=== PATIENT | male | born 1965 | race Caucasian/White ===

== ENCOUNTER 2025-06-08 23:51 | Emergency (ER) | payer BC, SELFPAY ==
[2025-06-09 00:05] VITALS: BP 122/81
[2025-06-09 01:08] VITALS: BMI 22.4
[2025-06-09 01:32] LABS: Hematocrit 33.4 % (39.0-52.0); Hemoglobin 11.4 g/dL (13.0-18.0); Mean Corp Hgb Conc. 34.1 g/dL (33.0-37.0); Mean Corpuscular Volume 90.3 fL (80.0-94.0); Nucleated Red Blood Cells % 0 % (-); Platelet Count 191 10^3/uL (130-400); Red Cell Dist. Width 13.3 % (11.5-14.5)
[2025-06-09 01:46] LABS: ALT (SGPT) 151 U/L (0-50); AST (SGOT) 147 U/L (17-59); Albumin 3.8 g/dl (3.5-5.0); Alkaline Phosphatase 261 U/L (38-126); Blood Urea Nitrogen 25 mg/dl (9-20); Calcium 9.7 mg/dl (8.4-10.2); Carbon Dioxide 31 mmol/L (22-30); Chloride 103 mmol/L (98-107); Estimated Creatinine Clearance 48 ml/min; Glucose 123 mg/dl (70-99); Lipase 48 U/L (23-300); Potassium 4.6 mmol/L (3.5-5.1); Sodium 138 mmol/L (135-145); Total Protein 7.1 g/dl (6.3-8.2); eGFR 45.02
[2025-06-09 02:00] VITALS: BP 123/73
[2025-06-09 03:00] VITALS: BP 138/86
[2025-06-09 03:25] VITALS: BP 152/84
[2025-06-09 03:47] VITALS: BP 152/84
[2025-06-09] MEDS: NSS 1000 IV (04:34)
[2025-06-09 05:36] VITALS: BP 139/66
--- NOTE | 2025-06-09 06:06 | ED.GENMED ---
History of Present Illness
General
Chief Complaint: Abdominal Pain
Source: patient
Exam Limitations: none
Time Seen by Provider: 06/09/25 02:06
Nursing documentation reviewed up to this point in time: agreed with
History of Present Illness
History of Present Illness:
Note:
CHIEF COMPLAINT(S)
Abdominal discomfort and constipation.
HISTORY OF PRESENT ILLNESS
The patient is a 60-year-old male who presents with complaints of abdominal discomfort and bowel issues persisting for approximately four weeks. Initially, around October and November, he noticed his urine had a strawberry-like tint, which coincided with
taking the medication Quetiapine. After discontinuing the medication, per his doctors approval, the discoloration ceased.
More recently, he has experienced discomfort in the left abdomen, sometimes migrating to the pelvic region and lower back. The pain was described as uncomfortable but not acutely painful. Over the past two weeks, there have been variations in the
intensity of symptoms, with some days being better than others until today when it became intolerable. The patients bowel movements have become irregular; the last one occurred the previous night around midnight, described as pellet-like and
requiring significant effort.
The patient has a sensation of fullness or constipation confirmed by an abdominal X-ray indicating fecal retention. He acknowledges drinking prune juice but feels it was ineffective in alleviating the symptoms. His symptoms include a migrating pain
pattern, tender abdomen except for one area, and periodic discomfort exacerbated by movement or standing.
PHYSICAL EXAM
General: Alert, cooperative.
Skin: Warm, dry.
Head: Normocephalic, atraumatic.
Neck: Supple, trachea midline.
Eye Ears, Nose, Mouth, and Throat: Oral mucosa moist.
Cardiovascular: Normal peripheral perfusion, no edema.
Respiratory: Respirations are non-labored.
Gastrointestinal: Abdomen exhibited good bowel sounds but was tender upon palpation, particularly noticeable in regions of reported pain.
Back: Tenderness observed upon examination.
Musculoskeletal: Normal range of motion, normal strength.
Neurological: Alert and oriented to person, place, time, and situation. No focal neurological deficit observed.
Psychiatric: Cooperative, appropriate mood & affect.
PROBLEM LIST
Acute:
- Abdominal discomfort
- Constipation
PLAN
The plan includes administering an enema to alleviate fecal retention and reassess the patients symptoms following the procedure.
DIFFERENTIAL DIAGNOSIS
The Differential Diagnosis includes, in no particular order and is not limited to:
- Constipation
- Ileus
- Renal colic
- Abdominal mass
- Polynephritis
- Colonic obstruction
- Diverticulitis
- Urinary tract infection
- Inflammatory bowel disease
- Functional bowel disorder
Disposition:
SUMMARY OF ENCOUNTER
A 60-year-old male presented with abdominal pain and distension. He reported not having a bowel movement for several days. An enema consisting of milk and molasses was administered, resulting in several large bowel movements. Post-treatment, the
patients pain resolved, and abdominal distension decreased.
DISPOSITION
Discharge home in improved condition.
PLAN
The patient is to be discharged with a bottle of magnesium citrate to ensure continuity in bowel regularity.
MEDICATION RECONCILIATION
Magnesium citrate prescribed for continued bowel regulation.
MEDICAL DECISION MAKING
1. Number and Complexity of Problems Addressed: Chronic conditions affecting care include a history of constipation and acute abdominal discomfort.
2. Data:
Category 1: Abdominal X-ray indicating fecal retention was reviewed prior to administering the enema.
3. Risk: Consideration of Admission/Observation: Escalation of care, including admission/observation, was considered given the complexity and risk of the patients abdominal discomfort and fecal retention. However, ultimately it was determined the
patient was safe for outpatient management with close follow-up. Reasoning: The work-up was reassuring, symptoms were well controlled upon reevaluation, reexamination was reassuring, vitals were stable, and the patient was agreeable with discharge
and reliable for follow-up.
DIAGNOSIS
1. Constipation, unspecified (ICD-10: K59.00)
2. Abdominal pain, unspecified (ICD-10: R10.9)
Course
Orders/Labs/Results
Orders:
Orders
06/09/25 01:13
Complete Blood Count/With Diff Urgent
Comprehensive Metabolic Panel Urgent
Lipase Urgent
06/09/25 02:20
0.9% Sodium Chloride 1000 ml [Nss] 1,000 ml IV BOLUS
CR Abdomen - 1 View Urgent
Comment:
Reason For Exam: abd pain
06/09/25 03:22
Enema- Treatment ONCE
Type: Milk of Molasses
Abnormal Lab Results
06/09/25
01:13
RBC 3.70 L 10^6/uL
(4.70-6.10)
Hgb 11.4 L g/dL
(13.0-18.0)
Hct 33.4 L %
(39.0-52.0)
Absolute Lymphs (auto) 0.5 L 10^3/uL
(1.2-3.4)
Lymphocytes % 11.2 L %
(20.5-51.1)
Monocytes % 11.8 H %
(1.7-9.3)
Carbon Dioxide 31 H mmol/L
(22-30)
BUN 25 H mg/dl
(9-20)
Creatinine 1.7 H mg/dL
(0.7-1.3)
Glucose 123 H mg/dl
(70-99)
AST 147 H U/L
(17-59)
ALT 151 H U/L
(0-50)
Alkaline Phosphatase 261 H U/L
(38-126)
06/09/25 01:13
06/09/25 01:13
Vital Signs
Initial and Last Documented VS:
Initial Vital Signs
Temp Pulse Resp BP Pulse Ox
97.2 F 94 20 122/81 98
06/09/25 00:05 06/09/25 00:05 06/09/25 00:05 06/09/25 00:05 06/09/25 00:05
Last Documented Vital Signs
Temp Pulse Resp BP Pulse Ox
97.2 F 65 16 139/66 100
06/09/25 00:05 06/09/25 05:35 06/09/25 05:35 06/09/25 05:36 06/09/25 05:35
*Pulse Oximetry
SaO2: 100
Oxygen Mode of Delivery: Room air
ED Attending Note
-
Portions of this chart may have been created with voice recognition software.� Occasional wrong word or��sound alike� substitutions may have occurred due to the inherent limitations of voice recognition software.
Discharge Plan
Departure
Referrals:
Adán Yoder MD [Family Provider, Family Practice]
Interventions
Interventions:
*Risk Screen - Suicide Last Done: 06/09/25 00:05
*General Assessment Last Done: 06/09/25 01:06
*Neglect/Abuse Screening Last Done: 06/09/25 01:06
*ED- Fall Risk Assessment Last Done: 06/09/25 01:06
*ED COVID-19 Vaccine History Last Done: 06/09/25 01:06
*ED Influenza Vaccine History Last Done: 06/09/25 01:06
RG-Nbuoal-Mjyxobwlgi Assessment Last Done: 06/09/25 03:25
Discharge Date and Time
Print Language: LATVIAN
[2025-06-09] MEDS: CITROMA 300 ML PO (06:22)
== END 2025-06-09 06:30 | disposition home or self-care (01) ==
LOC: EMR 23:51
PROVIDERS: EMERGENCY PHYSICIAN Student in an Organized Health Care Education/Training Program; FAMILY PHYSICIAN Family Medicine
DX: K59.00 Constipation, unspecified (principal); R10.9 Unspecified abdominal pain
CPT/HCPCS: 96360; 99284; 74018; 80053; 83690; 85025

== ENCOUNTER 2025-06-16 07:10 | Inpatient (IN) | payer OTHER, SELFPAY ==
[2025-06-15] VITALS (8 sets, daily range): BP systolic 135–153; BP diastolic 76–95; BMI 23.0
--- NOTE | 2025-06-15 06:35 | ED.GENMED ---
History of Present Illness
General
Chief Complaint: Abdominal Pain
Time Seen by Provider: 06/15/25 06:07
Nursing documentation reviewed up to this point in time: agreed with
History of Present Illness
History of Present Illness:
60-year-old male presents the ER for evaluation of abdominal distention and pelvic pressure which have been worsening over the past month. Patient denies any weight loss. He has been feeling nauseated and has had decreased p.o. intake. He was
here in the ER 4 days ago and treated for constipation but has not had any significant relief of his feeling of abdominal discomfort. He denies any dysuria or urinary concerns. He reports swelling to his right lower extremity, which is new. He
also reports feeling short of breath with exertion-he took out the trash last night and had to stop because he was so winded. This is extremely unusual for the patient as he reports that he is an exercise enthusiast. He denies fevers. He has been
having increasing symptoms of depression and has been compliant with all of his medications. No recent change in his psychiatric medications. No prior history of abdominal discomfort or surgery.
Review of Systems
Review of Systems
Allergies reviewed?: Yes
Phy Exam
Physical Exam
Physical Exam:
Patient is awake, alert, appears in no acute distress, head is NCAT, PERRL, EOMI mucous membranes tacky, conjunctiva pink, sclera anicteric, temporal wasting, heart regular rate and rhythm without murmurs or ectopy, lungs are clear to auscultation
without wheezes rales or rhonchi, no JVD, abdomen is diffusely firm with enlargement in the upper abdomen, no guarding or rebound, positive right inguinal lymphadenopathy, right lower extremity with 2+ edema from thigh to foot, 2+ DP pulse present
bilateral feet, left lower extremity normal, GCS is 15
Course
Orders/Labs/Results
Orders:
Orders
06/15/25 06:26
CT Pe/abd/pel W Urgent
Reason For Exam: dyspnea
US Periph Venous LOWER Ext RT Urgent
Comment:
Reason For Exam: edema
06/15/25 06:27
Electrocardiogram (*1) Stat
Reason for Study: Abdominal Pain
Cardiac Monitoring- Treatment ONCE
EKG- Treatment ONCE
Vital Signs- Treatment ONCE
Frequency: Hourly
0.9% Sodium Chloride 1000 ml [Nss] 1,000 ml IV BOLUS
Morphine Sulfate 4 mg IV NOW STA
Pulse Ox/cont/shift [RESP] Stat
Quantity: 1
06/15/25 06:36
Ondansetron Injectable [Zofran] 4 mg IV NOW STA
06/15/25 06:47
Basic Metabolic Panel Urgent
Complete Blood Count/With Diff Urgent
Lipase Urgent
Troponin I Urgent
06/15/25 08:10
PTT Urgent
Prothrombin Time Urgent
Urinalysis Reflex To Culture Urgent
Date Specimen was Collected: 06/15/25
Time Specimen was Collected: 07:11
Urine Microscopic Reflex Cult Urgent
06/15/25 08:58
Add On- LAB Urgent
Tests Added?: liver chem panel
06/15/25 09:15
HYDROmorphone [Dilaudid] 0.5 mg IV NOW STA
06/15/25 09:23
Luupt-Ibhx-Pxrlygk Urgent
Potassium Urgent
Abnormal Lab Results
06/15/25 06/15/25 06/15/25
06:47 08:10 09:23
RBC 3.83 L 10^6/uL
(4.70-6.10)
Hgb 11.9 L g/dL
(13.0-18.0)
Hct 34.4 L %
(39.0-52.0)
MCH 31.1 H pg
(27.0-31.0)
MPV 10.6 H fL
(7.4-10.4)
Absolute Lymphs (auto) 0.7 L 10^3/uL
(1.2-3.4)
Absolute Monos (auto) 0.7 H 10^3/uL
(0.1-0.6)
Lymphocytes % 11.0 L %
(20.5-51.1)
Monocytes % 10.8 H %
(1.7-9.3)
Sodium 132 L mmol/L
(135-145)
Creatinine 1.5 H mg/dL
(0.7-1.3)
Direct Bilirubin 0.5 H mg/dl
(0.0-0.4)
AST 176 H U/L
(17-59)
ALT 184 H U/L
(0-50)
Alkaline Phosphatase 333 H U/L
(38-126)
Urine Albumin (Reflex) 1+ A
(Neg - Trace)
06/15/25 06:47
06/15/25 09:23
Vital Signs
Initial and Last Documented VS:
Initial Vital Signs
Temp Pulse Resp BP Pulse Ox
97.9 F 98 16 139/91 100
06/15/25 05:56 06/15/25 05:56 06/15/25 05:56 06/15/25 05:56 06/15/25 05:56
Last Documented Vital Signs
Temp Pulse Resp BP Pulse Ox
97.9 F 66 18 138/95 100
06/15/25 05:56 06/15/25 06:53 06/15/25 06:53 06/15/25 06:53 06/15/25 06:53
MDM/Problems Addressed
Differential Diagnosis Includes:
Differential diagnosis to consider but not limited to intra-abdominal malignancy, IVC compression, right lower extremity DVT, pulmonary embolism, along with other etiologies considered
Chronic conditions affecting care:
Anxiety
*Radiology
Radiology exam reviewed: preliminary read by ED provider (I independently viewed and interpreted CT of the chest abdomen pelvis showing significant hepatomegaly with concern for multiple areas of malignancy. Await radiology interpretation)
*Pulse Oximetry
SaO2: 100
Oxygen Mode of Delivery: Room air
Patient hypoxic: no
*EKG
Interpreted by ED Provider?: Yes (I independently viewed and interpreted twelve-lead EKG showing sinus rhythm with PACs, rate 62, normal axis, normal intervals, this is a nonspecific EKG without evidence for acute ischemia)
*Forest Examiner Interpretation
Rate: normal (I independently viewed and interpreted rhythm strip showing sinus rhythm with PACs)
*Critical Care Note
Total Time (30-74mins, 75-104mins- exclusive of procedures): Not Applicable
Data Reviewed
Review of Other/Old Records Reveals: Labs (Patient had elevated LFTs and creatinine 1.7 from ER visit 06/09/25) and Operative Reports (I reviewed colonoscopy report from 12/29/2013, Dr. Beal. Patient had a 10 mm polyp removed from his rectum
during this procedure)
Update Note
Update Note:
Will give Zofran and morphine for discomfort along with IV fluids. I discussed with patient need to obtain CT angio to rule out pulmonary embolism in addition to CT of the abdomen and pelvis. Will also obtain right lower extremity ultrasound.
Awaiting results.
1000: Patient did require additional pain reliever. Patient went to CT. Await radiology interpretation
1025: I reviewed CT results with Dr. Warren, radiology. No evidence for pulmonary embolism on CT of the chest, however there are tubular foci in the right upper lobe, left upper lobe and left lower lobe, possibly related to mucous plugging. She
also sees extensive metastatic disease throughout the liver along with a grossly abnormal right kidney that is not exhibiting any perfusion or excretion on the CT scan. Patient also has compression of the IVC with clot. She would suspect renal
cell carcinoma as primary. I reviewed this result with the patient along with benefit of admission for expedited workup. He agrees with plan at current. I reviewed patient presentation with hospitalist who accepts patient for admission.
ED Attending Note
-
Portions of this chart may have been created with voice recognition software.� Occasional wrong word or��sound alike� substitutions may have occurred due to the inherent limitations of voice recognition software.
Discharge Plan
Departure
Patient Disposition: Admit
Date of Disposition: 06/15/25
Time of Disposition: 10:35
Presentation/result/management discussed w/ accepting MD/DO: Hospitalist
Discharge Problem:
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
Prescriptions:
No Action
fluvoxamine 100 mg tablet
100 mg PO DAILY
fluvoxamine 100 mg tablet
150 mg PO HS
bupropion HCl 200 mg tablet sustained-release 12 hr
200 mg PO BID
alprazolam 3 mg tablet extended release 24 hr
3 mg PO DAILY
Referrals:
Adán Yoder MD [Family Provider, Family Practice]
Interventions
Interventions:
*Risk Screen - Suicide Last Done: 06/15/25 06:04
*General Assessment Last Done: 06/15/25 06:04
*Neglect/Abuse Screening Last Done: 06/15/25 06:04
*ED COVID-19 Vaccine History Last Done: 06/15/25 06:04
*ED Influenza Vaccine History Last Done: 06/15/25 06:04
DU-Znmlmi-Gtyonjmkdp Assessment Last Done: 06/15/25 06:14
Discharge Date and Time
Print Language: CZECH
[2025-06-15] MEDS: MORPHINE SULFATE 4 MG IV (06:40)
[2025-06-15] MEDS: ZOFRAN 4 MG IV ×2 (06:40→15:50)
[2025-06-15] MEDS: NSS 1000 IV ×2 (06:45→15:50)
[2025-06-15 07:20] LABS: Hematocrit 34.4 % (39.0-52.0); Hemoglobin 11.9 g/dL (13.0-18.0); Mean Corp Hgb Conc. 34.6 g/dL (33.0-37.0); Mean Corpuscular Volume 89.8 fL (80.0-94.0); Nucleated Red Blood Cells % 0 % (-); Platelet Count 226 10^3/uL (130-400); Red Cell Dist. Width 13.5 % (11.5-14.5)
[2025-06-15 07:27] LABS: Lipase 67 U/L (23-300)
[2025-06-15 07:32] LABS: Troponin I < 0.012 ng/ml
[2025-06-15 08:14] LABS: Blood Urea Nitrogen 18 mg/dl (9-20); Estimated Creatinine Clearance 56 ml/min; Glucose 89 mg/dl (70-99); eGFR 52.31
[2025-06-15 08:15] LABS: Calcium 9.8 mg/dl (8.4-10.2); Carbon Dioxide 26 mmol/L (22-30); Chloride 100 mmol/L (98-107); Sodium 132 mmol/L (135-145)
[2025-06-15 08:38] LABS: Urine Character Clear (Clear)
[2025-06-15 08:41] LABS: APTT 28.1 Sec (23.4-35.0); INR 1.05; PT 14.2 Sec (11.4-14.6)
[2025-06-15 09:19] LABS: Urine Red Blood Cell 0-2 /HPF (0-2)
[2025-06-15] MEDS: DILAUDID 0.5 MG IV ×3 (09:21→23:07)
[2025-06-15 09:46] LABS: ALT (SGPT) 184 U/L (0-50); AST (SGOT) 176 U/L (17-59); Albumin 3.6 g/dl (3.5-5.0); Alkaline Phosphatase 333 U/L (38-126); Potassium 5.0 mmol/L (3.5-5.1); Total Protein 6.8 g/dl (6.3-8.2)
[2025-06-15] MEDS: HEPARIN 25000 UNITS/250 ML IV (11:52)
--- NOTE | 2025-06-15 11:57 | HPS.HSE ---
Family Physician
-
Family Physician: Adán Yoder
Chief Complaint
-
abdominal dyscomfort
History of Present Illness
60yo M with PMHX of anxiety came with worsening abdominal distension and discomfort for past few months. He also lost 27lbs over past year, however he was trying todo that with dieting and excersise. In ED found elevated LFT and CT showed numerous
abnormal hepatic masses consistent with metastatic disease. There is clot in the IVC. There is a soft tissue mass medial to the right kidney which may be adenopathy however neoplastic process and/or invasion of the IVC cannot be excluded. The right
kidney is markedly abnormal and renal cell carcinoma is strongly suspected.
Medical History
Past Medical History
Past Medical History: Reports Other
Additional Past Medical History:
see above
Past Surgical History: Reports None
Social History
Tobacco: Non-smoker
Alcohol: None
Drug: None
Family History
Family History: Not pertinent
Allergies / Home Medications
Allergies reflects when Allergies were last updated in [facility].
Home Medications with original date entered in [facility]
Allergy/Medication List:
Allergies
Allergy/AdvReac Type Severity Reaction Status Date / Time
No Known Allergies Allergy Unverified 06/09/25 02:46
Home Medications
alprazolam 3 mg tablet,extended release 24 hr 3 mg PO DAILY 06/15/25
bupropion HCl 200 mg tablet,12 hr sustained-release 200 mg PO BID 06/15/25
fluvoxamine 100 mg tablet 100 mg PO DAILY 06/15/25
fluvoxamine 100 mg tablet 150 mg PO HS 06/15/25
Review of Systems
-
History Source: Patient
A 12 point ROS was completed and negative except as noted: Yes
Abdomen/GI: Reports See HPI
Physical Exam
Vital Signs
Vital Signs
Temp Pulse Resp BP Pulse Ox
97.9 F 64 12 142/86 100
06/15/25 05:56 06/15/25 09:15 06/15/25 08:09 06/15/25 09:00 06/15/25 09:15
Physical Exam
General: No Apparent Distress
HEENT: NormoCephalic
Respiratory: Clear; No Wheezes, Rales or Rhonchi
Cardiac: S1/S2 and Regular Rhythm; No Murmur
GI: Soft, Tender (minimally) and Distended
Genito-urinary: No costovertebral tender
Musculoskeletal: No Clubbing, No Cyanosis and Edema, Right Lower Extremity
Skin: Warm; No Rash or Jaundice
Neuro: Awake, Alert, Oriented, AO x 3 and No Motor Deficits
Psych: Calm
Laboratory Results
-
06/15/25 06:47
06/15/25 09:23
Laboratory Results
PT 14.2 Sec (11.4-14.6) 06/15/25 08:10
INR 1.05 06/15/25 08:10
APTT 28.1 Sec (23.4-35.0) 06/15/25 08:10
Total Bilirubin 0.8 mg/dl (0.2-1.3) 06/15/25 09:23
AST 176 U/L (17-59) H 06/15/25 09:23
ALT 184 U/L (0-50) H 06/15/25 09:23
Alkaline Phosphatase 333 U/L (38-126) H 06/15/25 09:23
Troponin I < 0.012 ng/ml 06/15/25 06:47
Lipase 67 U/L (23-300) 06/15/25 06:47
Data Reviewed
-
CT Scan: Report Reviewed by me
Ultrasound: Report Reviewed by me
Lab Data: Labs Reviewed by me
Impression/Plan
-
A/P:
#R kidney soft tissue mass
#Hepatic metastatic disease
#Elevated LFT 2/2 metastatic disease
#clot in IVC
Heparin
IRAD for biopsy - apparently can do iver lesion
Oncology consult
Heaprin drip, eventual DOAC upon d/c
follow LFT
check hepatitis panel
#Anxiety d/o
cont home meds
#RLE edema
no DVT
#Constipation
laxatives
DVT ppx hep drip
full code
I have spent at least 77min reviewing chart, test results, communication with consultants and providing direct patient care
--- NOTE | 2025-06-15 13:02 | W.PN.UPDATE ---
Update Note
Progress Note Update
as per conversation with onc - hold anticoag until MRI abd to eval for clot vs mass in IVC as mass can bleed
--- NOTE | 2025-06-15 13:23 | CON.ONC ---
Documented by User: OSBALDO Munguia 06/15/25 13:48
Consultation
-
Date Consultation Requested: 06/15/25
Date Consultation Performed: 06/15/25
Requesting Provider: Dr. Jason Sen
Performing Provider: Dr. Zaheer Kendall
Reason for Consultation: R renal abnormality, liver lesions, adenopathy, VTE
Impression
Impression
right kidney abnormality and soft tissue mass medial to the right kidney
Hepatic lesions
transaminitis
clot in IVC
anemia
Plan
Plan
heparin gtt
trend LDH, uric acid
check ferritin, b12, folate
IR consult for liver biopsy
symptom support with antiemetics and pain management
Patient History
History of Present Illness
60yo M who presented with abdominal discomfort. He notes a 27lb weight loss, abdominal distention, and worsening abdominal pain. He notes some weight loss was intentional over the past year. His initial evaluation with a CTA chest showed no evidence
of pulmonary emboli, however, did show tubular foci predominantly in the right upper lobe but scattered elsewhere with a pattern suggesting an endobronchial process, and adenopathy in the right hilum and subcarinal. His CT ab/pelvis showed, numerous
abnormal hepatic masses, soft tissue mass medial to the right kidney, abnormal right kidney, and IVC thrombus. HIs labs showed WBC 6.6, Hgb 11.9, platelet 226,000, Na 132, BUN 18, creatinine 1.5, Tbili 0.8, AST 176, ALT 184, alk phos 333. He has
been admitted and started on a heparin gtt for further work up and evaluation.
Clinically, he denies fever, chills, cough, chest pain, sob at rest, palpitations. He reports abdominal discomfort, distention, nausea, and constipation. He denies any overt bleeding.
Afebrile, no hypoxia or hypotension
Past-Medical/Surgical History
PMH hemorrhoids, rectal polyp, anxiety
PSH denies
Social denies tobacco, ETOH, or recreational drug use
Family non-contributory
Patient Medication
�Medication �Instructions �Recorded �Confirmed �Last Taken �Type
alprazolam 3 mg tablet,extended 3 mg PO DAILY 06/15/25 06/15/25 06/14/25 History
release 24 hr
bupropion HCl 200 mg tablet,12 hr 200 mg PO BID 06/15/25 06/15/25 06/14/25 History
sustained-release
fluvoxamine 100 mg tablet 100 mg PO DAILY 06/15/25 06/15/25 06/14/25 History
fluvoxamine 100 mg tablet 150 mg PO HS 06/15/25 06/15/25 06/14/25 History
Review of Systems
-
ROS is notable for HPI, otherwise negative
Physical Exam
-
General: No Apparent Distress and Other (temporal wasting)
HEENT: Moist Mucous Membranes; Negative Jaundice
Pulmonary: Other (unlabored)
GI: Soft
Extremities: Pulses Present and Edema (RLE edema)
Skin: Warm
Psych: Calm
Labs
Lab Results
WBC 6.6 10^3/uL (4.8-10.8) 06/15/25 06:47
RBC 3.83 10^6/uL (4.70-6.10) L 06/15/25 06:47
Hgb 11.9 g/dL (13.0-18.0) L 06/15/25 06:47
Hct 34.4 % (39.0-52.0) L 06/15/25 06:47
MCV 89.8 fL (80.0-94.0) 06/15/25 06:47
MCH 31.1 pg (27.0-31.0) H 06/15/25 06:47
MCHC 34.6 g/dL (33.0-37.0) 06/15/25 06:47
RDW 13.5 % (11.5-14.5) 06/15/25 06:47
Plt Count 226 10^3/uL (130-400) 06/15/25 06:47
MPV 10.6 fL (7.4-10.4) H 06/15/25 06:47
Abs Immat Gran (auto) 0.0 10^3/uL (0-0.05) 06/15/25 06:47
Absolute Neuts (auto) 4.9 10^3/uL (1.4-6.5) 06/15/25 06:47
Absolute Lymphs (auto) 0.7 10^3/uL (1.2-3.4) L 06/15/25 06:47
Absolute Monos (auto) 0.7 10^3/uL (0.1-0.6) H 06/15/25 06:47
Absolute Eos (auto) 0.2 10^3/uL (0-0.7) 06/15/25 06:47
Absolute Basos (auto) 0.0 10^3/uL (0-0.2) 06/15/25 06:47
Immature Gran % 0.3 % (0-0.5) 06/15/25 06:47
Neutrophils % 74.9 % (42.2-75.2) 06/15/25 06:47
Lymphocytes % 11.0 % (20.5-51.1) L 06/15/25 06:47
Monocytes % 10.8 % (1.7-9.3) H 06/15/25 06:47
Eosinophils % 2.4 % (0-6) 06/15/25 06:47
Basophils % 0.6 % (0-2) 06/15/25 06:47
Creatinine 1.5 mg/dL (0.7-1.3) H 06/15/25 06:47
Vital Signs
Vital Signs
Temp Pulse Resp BP Pulse Ox
97.9 F 64 12 142/86 100
06/15/25 05:56 06/15/25 09:15 06/15/25 08:09 06/15/25 09:00 06/15/25 09:15

Documented by User: Zaheer Kendall DO 06/15/25 13:54
Impression
Impression
Right kidney abnormality and soft tissue mass medial to the right kidney
Hepatic lesions
transaminitis
clot in IVC difficult to visualize by CAT scan due to inadequate contrast
anemia
Plan
Plan
Hold heparin gtt
MRI with contrast assessment of IVC to rule out direct invasion which would increase risk for bleeding
There may be thrombosis with extrinsic compression only
Trend LDH, uric acid
Check ferritin, b12, folate
IR consult reviewed interventional radiology left cervical lymphadenopathy lower risk biopsy then liver
Symptom support with antiemetics and pain management
--- NOTE | 2025-06-15 13:33 | EDRN ---
per Dr. Sen, Heparin gtt to be held currently until further notice
[2025-06-15 14:23] LABS: Uric Acid 5.5 mg/dl (3.5-8.5)
[2025-06-15 15:04] LABS: Ferritin 785.0 ng/ml (17.9-464.0)
[2025-06-15 15:13] LABS: LDH 3265 U/L (120-246)
[2025-06-15 15:35] LABS: Folate 19.3 ng/ml (2.76-20); Vitamin B12 913 pg/ml (239-931)
--- NOTE | 2025-06-15 15:47 | CM ---
Patient seen at bedside in ED. Patient OBS and signed form given to apartment community assistant manager for file and patient given copy. Patient states that he lives alone in a one story single wide. Patient has one step to enter. Patient has no DME at home and is
independent of ADL's and IADL's. Patient PCP is Dr. Yoder and he uses [facility] in [place]. CM will continue to follow for discharge planning needs.
Plan; home with VN vs home with no needs; watch for medical treatment plan
--- NOTE | 2025-06-15 16:42 | EDRN ---
this RN called the receiving unit and notified them that paper report was going to be tubed up
[2025-06-15] MEDS: SENOKOT-S 1 TABLET PO (19:51)
[2025-06-15] MEDS: XANAX 1.5 MG PO (20:59)
[2025-06-15] MEDS: WELLBUTRIN SR (12 hour sustained release) 200 MG PO (21:00)
[2025-06-15] MEDS: LUVOX 150 MG PO (21:02)
[2025-06-15 21:07] LABS: Hepatitis B Surface Antigen Negative (Negative)
[2025-06-15] MEDS: ROXICODONE 5 MG PO (21:25)
[2025-06-15 21:26] LABS: Hepatitis C Antibody Negative (Negative)
[2025-06-16] MEDS: NSS 1000 IV (04:07)
[2025-06-16] MEDS: DILAUDID 0.5 MG IV ×4 (05:54→21:42)
[2025-06-16 07:33] LABS: Hematocrit 34.0 % (39.0-52.0); Hemoglobin 11.6 g/dL (13.0-18.0); Mean Corp Hgb Conc. 34.1 g/dL (33.0-37.0); Mean Corpuscular Volume 92.6 fL (80.0-94.0); Platelet Count 212 10^3/uL (130-400); Red Cell Dist. Width 13.5 % (11.5-14.5)
[2025-06-16 07:40] VITALS: BP 145/74
[2025-06-16] MEDS: XANAX 1.5 MG PO ×2 (07:43→19:25)
[2025-06-16] MEDS: WELLBUTRIN SR (12 hour sustained release) 200 MG PO ×2 (07:44→19:25)
[2025-06-16] MEDS: LUVOX 100 MG PO (07:44)
[2025-06-16] MEDS: SENOKOT-S 1 TABLET PO ×2 (07:44→19:26)
[2025-06-16 07:55] LABS: ALT (SGPT) 170 U/L (0-50); AST (SGOT) 149 U/L (17-59); Albumin 3.6 g/dl (3.5-5.0); Alkaline Phosphatase 325 U/L (38-126); Blood Urea Nitrogen 22 mg/dl (9-20); Calcium 9.4 mg/dl (8.4-10.2); Carbon Dioxide 32 mmol/L (22-30); Chloride 98 mmol/L (98-107); Estimated Creatinine Clearance 52 ml/min; Glucose 89 mg/dl (70-99); Potassium 4.9 mmol/L (3.5-5.1); Sodium 134 mmol/L (135-145); Total Protein 6.6 g/dl (6.3-8.2); eGFR 48.41
[2025-06-16] MEDS: ROXICODONE 5 MG PO (07:56)
--- NOTE | 2025-06-16 11:22 | W.PN.HOSP.TC ---
Today's Communication/Plan
-
biopsy
switch to dilaudid since Oxycodone did not help with night abd pain
stop IVF
Assessment / Plan
Assessment / Plan
60yo M with PMHX of anxiety came with worsening abdominal distension and discomfort for past few months. He also lost 27lbs over past year, however he was trying todo that with dieting and excersise. In ED found elevated LFT and CT showed numerous
abnormal hepatic masses consistent with metastatic disease with tumor invasion to IVC and R kidney almost totally replced by tumor tissue, concerning for RCC
A/P:
#R kidney soft tissue mass
#Hepatic metastatic disease
#Elevated LFT 2/2 metastatic disease
[facility] for biopsy - apparently can do iver lesion
Oncology consult: recommended biopsy of subcranial lymph node
Heaprin drip, eventual DOAC upon d/c
follow LFT
pain mgmt
high risk for bleeding from the tumor invasion to IVC, no AC as per hematology
MRI abd:
LARGE 12 cm RIGHT RENAL CELL CARCINOMA completely replacing the right kidney with surrounding extracapsular extension of malignancy.
2. Extensive metastatic disease extending medially from the right kidney through the retroperitoneum with occlusion of the right renal vein (probably containing tumor thrombus and encased by emily metastatic disease).
3. SEVERE METASTATIC RETROPERITONEAL LYMPHADENOPATHY.
4. Near complete occlusion of the IVC which is encased by extensive metastatic retroperitoneal lymphadenopathy.
5. TUMOR THROMBUS (and probably bland thrombus) in the IVC and right common iliac vein
6. VERY EXTENSIVE HEPATIC METASTATIC DISEASE replacing greater than 75% of the liver parenchyma.
7. Right adrenal metastasis.
8. Large retrocrural and mediastinal emily metastases.
9. Small bilateral pleural effusions.
#Anxiety d/o
cont home meds
#RLE edema
no DVT
#Anemia
mild
follow CBC
#Constipation
laxatives
#CKD stage 3a
2/2 metastatic renal disease
stable
DVT ppx SCDs
full code
I have spent at least 57min reviewing chart, test results, communication with consultants and providing direct patient care
Anticipated Discharge: Within 24 hours
Subjective/Interval History
-
Date of Service: June 16, 2025
Objective Data
-
Labs:
Laboratory Results
06/16/25
06:52
WBC 7.1
Hgb 11.6 L
Hct 34.0 L
Plt Count 212
Sodium 134 L
Potassium 4.9
Chloride 98
Carbon Dioxide 32 H
BUN 22 H
Creatinine 1.6 H
Glucose 89
Calcium 9.4
Total Bilirubin 0.5
AST 149 H
ALT 170 H
Alkaline Phosphatase 325 H
Vital Signs:
Vital Signs
Temp Pulse Resp BP Pulse Ox
97.7 F 58 18 145/74 99
06/16/25 07:40 06/16/25 07:40 06/16/25 07:40 06/16/25 07:40 06/16/25 07:40
I&O
06/15/25 06/16/25 06/17/25
06:59 06:59 06:59
Intake Total 1440 / 1440
Balance 1440 / 1440
Review of Systems
-
History Source: Patient
All other systems: Reviewed and negative
Abdomen/GI: Reports Abdominal Pain
Physical Exam
-
General: Comfortable
HEENT: Normocephalic
Cardiac: Regular Rhythm
GI: Soft, Tender and Distended
Neuro: Awake, Alert, Oriented and AO x 3
Psych: Calm
--- NOTE | 2025-06-16 12:33 | W.PN.ONC2 ---
Today's Communication / Plan
-
IR biopsy, follow for path
heparin gtt
Impression
Impression
12cm RCC replacing R kidney with surrounding extracapsular extension of malignancy, Extensive metastatic disease extending medially from the right kidney through the retroperitoneum, RP adenopathy
Hepatic lesions, right adrenal lesion consistent with metastasis
transaminitis
tumor thrombus and probably bland thrombus in the IVC and right common iliac vein
anemia, elevated ferritin
elevated LDH, non-specific -no evidence of TLS with normal urate
renal insufficency, chronicity unknown
Plan
Plan
IR consult for left cervical lymphadenopathy biopsy for diagnosis
heparin gtt
Symptom support with antiemetics and pain management
Subjective/Objective
Subjective
no new complaints
afebrile, no hypoxia or hypotension
using Colace, senna for constipation
using ondansetron for nausea
using hydrmorphone for pain
Vital Signs:
Vital Signs
Temp Pulse Resp BP Pulse Ox
97.7 F 58 18 145/74 99
06/16/25 07:40 06/16/25 07:40 06/16/25 07:40 06/16/25 07:40 06/16/25 07:40
Lab Results:
Laboratory Data
WBC 7.1 10^3/uL (4.8-10.8) 06/16/25 06:52
Hgb 11.6 g/dL (13.0-18.0) L 06/16/25 06:52
Plt Count 212 10^3/uL (130-400) 06/16/25 06:52
PT 14.2 Sec (11.4-14.6) 06/15/25 08:10
INR 1.05 06/15/25 08:10
APTT Cancelled 06/15/25 18:00
eGFR 48.41 06/16/25 06:52
Physical Exam
HEENT: Moist Mucous Membranes; No Jaundice
Pulmonary: Other (unlabored)
GI: Soft
Extremities: Pulses Present and Edema
Neuro: Non Focal
Orders
Orders
Orders From Last 24 Hours
06/15/25 13:44
Add On- LAB Routine
[2025-06-16 13:57] LABS: APTT 28.2 Sec (23.4-35.0)
--- NOTE | 2025-06-16 14:12 | PTCARENOTE ---
Pt ordered heparin gtt to start. [facility] called this RN to have patient come down for biopsy. Checked with Dr. Sen and confirmed to initiate heparin gtt when patient comes back from [facility]. Will continue with current plan.
[2025-06-16 14:14] VITALS: BP 135/76; BP_SYST 64
[2025-06-16 15:32] VITALS: BP 134/74; BP_SYST 60
[2025-06-16 15:39] VITALS: BP 134/74
[2025-06-16] MEDS: HEPARIN 25000 UNITS/250 ML IV (16:43)
[2025-06-16 17:39] VITALS: BP 131/73
[2025-06-16] MEDS: LUVOX 150 MG PO (21:40)
[2025-06-16 22:06] LABS: APTT 54.9 Sec (23.4-35.0)
[2025-06-16 23:22] VITALS: BP 116/73
[2025-06-17] MEDS: DILAUDID 0.5 MG IV ×3 (04:26→14:03)
[2025-06-17 04:47] LABS: APTT 81.1 Sec (23.4-35.0)
[2025-06-17 07:46] VITALS: BP 136/82
[2025-06-17] MEDS: LUVOX 100 MG PO (08:15)
[2025-06-17] MEDS: WELLBUTRIN SR (12 hour sustained release) 200 MG PO (08:15)
[2025-06-17] MEDS: SENOKOT-S 1 TABLET PO (08:15)
[2025-06-17] MEDS: XANAX 1.5 MG PO (08:15)
[2025-06-17] MEDS: HEPARIN 25000 UNITS/250 ML IV (08:20)
[2025-06-17 10:57] LABS: APTT 102.0 Sec (23.4-35.0)
--- NOTE | 2025-06-17 11:42 | W.PN.HOSP.TC ---
Addendum entered and electronically signed by Jason Sen MD 06/17/25 15:14:
Dont use billing under this PN, use discharge summary billing instead
Original Note:
Today's Communication/Plan
-
pending final oncology recommendations
Laxatives
Assessment / Plan
Assessment / Plan
60yo M with PMHX of anxiety came with worsening abdominal distension and discomfort for past few months. He also lost 27lbs over past year, however he was trying todo that with dieting and excersise. In ED found elevated LFT and CT showed numerous
abnormal hepatic masses consistent with metastatic disease with tumor invasion to IVC and R kidney almost totally replced by tumor tissue, concerning for RCC
A/P:
#R kidney soft tissue mass
#Hepatic metastatic disease
#Elevated LFT 2/2 metastatic disease
[facility] for biopsy - apparently can do iver lesion
Oncology consult: recommended biopsy of subcranial lymph node
Heaprin drip, eventual DOAC upon d/c
follow LFT
pain mgmt
high risk for bleeding from the tumor invasion to IVC, no AC as per hematology
MRI abd:
LARGE 12 cm RIGHT RENAL CELL CARCINOMA completely replacing the right kidney with surrounding extracapsular extension of malignancy.
2. Extensive metastatic disease extending medially from the right kidney through the retroperitoneum with occlusion of the right renal vein (probably containing tumor thrombus and encased by emily metastatic disease).
3. SEVERE METASTATIC RETROPERITONEAL LYMPHADENOPATHY.
4. Near complete occlusion of the IVC which is encased by extensive metastatic retroperitoneal lymphadenopathy.
5. TUMOR THROMBUS (and probably bland thrombus) in the IVC and right common iliac vein
6. VERY EXTENSIVE HEPATIC METASTATIC DISEASE replacing greater than 75% of the liver parenchyma.
7. Right adrenal metastasis.
8. Large retrocrural and mediastinal emily metastases.
9. Small bilateral pleural effusions.
#Anxiety d/o
cont home meds
#RLE edema
no DVT
#Anemia
mild
follow CBC
#Constipation
laxatives
#CKD stage 3a
2/2 metastatic renal disease
stable
DVT ppx SCDs
full code
I have spent at least 57min reviewing chart, test results, communication with consultants and providing direct patient care
Anticipated Discharge: 24 - 48 hours
Subjective/Interval History
-
Date of Service: June 17, 2025
Objective Data
-
Labs:
Laboratory Results
06/17/25 06/17/25
04:22 10:37
APTT 81.1 H 102.0 H
Vital Signs:
Vital Signs
Temp Pulse Resp BP Pulse Ox
98.2 F 82 16 136/82 99
06/17/25 07:46 06/17/25 07:46 06/17/25 07:46 06/17/25 07:46 06/17/25 07:46
I&O
06/16/25 06/17/25 06/18/25
06:59 06:59 06:59
Intake Total 1440 / 1440 770 / 770
Balance 1440 / 1440 770 / 770
Review of Systems
-
History Source: Patient
All other systems: Reviewed and negative
Physical Exam
-
General: No Apparent Distress
HEENT: Normocephalic
Neuro: Awake, Alert, Oriented and AO x 3
Psych: Calm
--- NOTE | 2025-06-17 12:20 | W.DCSUMMARY ---
Discharge Summary
Discharge Data
Date of Admission: 06/16/25
Date of Discharge: 06/17/25
-
Pending Results: Yes
Additional Pending Results:
Pathology
Hospital Course
60yo M with PMHX of anxiety came with worsening abdominal distension and discomfort for past few months. He also lost 27lbs over past year, however he was trying todo that with dieting and excersise. In ED found elevated LFT and CT showed numerous
abnormal hepatic masses consistent with metastatic disease with tumor invasion to IVC and R kidney almost totally replced by tumor tissue, concerning for RCC
MRI abd:
LARGE 12 cm RIGHT RENAL CELL CARCINOMA completely replacing the right kidney with surrounding extracapsular extension of malignancy.
2. Extensive metastatic disease extending medially from the right kidney through the retroperitoneum with occlusion of the right renal vein (probably containing tumor thrombus and encased by emily metastatic disease).
3. SEVERE METASTATIC RETROPERITONEAL LYMPHADENOPATHY.
4. Near complete occlusion of the IVC which is encased by extensive metastatic retroperitoneal lymphadenopathy.
5. TUMOR THROMBUS (and probably bland thrombus) in the IVC and right common iliac vein
6. VERY EXTENSIVE HEPATIC METASTATIC DISEASE replacing greater than 75% of the liver parenchyma.
7. Right adrenal metastasis.
8. Large retrocrural and mediastinal emily metastases.
9. Small bilateral pleural effusions.
Started on heparin drip and eventually switched to Eliquis. After numerous calls to the pharmacy by and CM - confirmed that pharmacy will honor coupon for the first month supply, since they could not obtain Rx info from new insurance
Provided phone number to call Oncology office [facility] upon d/c for follow up care
[facility] for outpatient resources
Discussed same over the phone with brother - Mihai
Medically stable to be d/c as agreed with oncologist commissioning engineer, will stay with his brother
I have spent at least 57min reviewing chart, test results, communication with consultants and providing direct patient care
Patient was managed for:
#R kidney soft tissue mass
#IVC clot
#Hepatic metastatic disease
#Elevated LFT 2/2 metastatic disease
#Anxiety d/o
#RLE edema
#Anemia
#Constipation
#CKD stage 3a
Discharge Plan
-
Patient Disposition: Home (Routine Discharge)
Discharge Diagnosis/Procedures: metastatic CA
Diet: Regular
Activity: As tolerated
Driving Restrictions: No driving
Referrals:
Zaheer Kendall, DO [Active, Hematology / Oncology] - in one to two days
Referral Note: call [phone] for scheduling
Adán Yoder MD [Family Provider, Family Practice]
Prescriptions:
New
Eliquis 5 mg tablet
See Rx Instructions .ROUTE .COMPLEX Qty: 74 0RF
Rx Instructions:
Take 10mg BID for 7 days, then 5mg BID until told to stop by doctor
ondansetron 4 mg tablet,disintegrating
4 mg PO Q8H PRN (Reason: nausea and vomiting) Qty: 30 0RF
oxycodone 10 mg tablet
10 mg PO Q8H PRN (Reason: Pain) Qty: 9 0RF
Continued
fluvoxamine 100 mg tablet
100 mg PO DAILY
fluvoxamine 100 mg tablet
150 mg PO HS
bupropion HCl 200 mg tablet sustained-release 12 hr
200 mg PO BID
alprazolam 3 mg tablet extended release 24 hr
3 mg PO DAILY
Discharge Orders:
Discharge Patient (As Directed); Ordered 06/17/25
Ordered By: Jason Sen
Discharge Date and Time
Print Language: HEBREW
--- NOTE | 2025-06-17 13:47 | CM ---
Addendum entered by Chula Toure 06/17/25 14:49:
CM spoke with [facility]- confirmed they are able to accept Eliquis coupon. Pharmacy also unable to get through to patients prescription coverage as offices closed over weekend.
Original Note:
CM reviewed chart, patient seen bedside, on phone with friend.
Patient for d/c today, friend to provide transportation home.
Patient will require Eliquis upon d/c- will provide coupons.
Call to pharmacy- unable to check cost as they have patients old insurance coverage on file- provided pharmacy with patients new insurance information- pharmacy will call member services to obtain prescription plan/coverage.
CM also tried to call [employer] to obtain prescription coverage- informed office closed over weekend, update to Hospitalist.
Plan; home with family support, will confirm pharmacy is able to accept Eliquis coupon
[2025-06-17 15:41] VITALS: BP 117/72
[2025-06-17] MEDS: ELIQUIS 10 MG PO (16:57)
== END 2025-06-17 18:21 | disposition home or self-care (01) | DRG 686 ==
LOC: 4 WEST ACU 07:10
PROVIDERS: ADMITTING PHYSICIAN Internal Medicine; CONSULT PHYSICIAN Internal Medicine Hematology & Oncology; EMERGENCY PHYSICIAN Emergency Medicine; FAMILY PHYSICIAN Family Medicine
DX: C64.1 Malignant neoplasm of right kidney, except renal pelvis (principal); I82.220 Acute embolism and thrombosis of inferior vena cava; C77.1 Secondary and unspecified malignant neoplasm of intrathoracic lymph nodes; C78.7 Secondary malignant neoplasm of liver and intrahepatic bile duct; C79.71 Secondary malignant neoplasm of right adrenal gland; F41.9 Anxiety disorder, unspecified; D64.9 Anemia, unspecified; K59.00 Constipation, unspecified; N18.31 Chronic kidney disease, stage 3a; Z79.899 Other long term (current) drug therapy
CPT/HCPCS: 38505; 71275; 74177; 74183; 76942; 80048; 80053; 80076; 81003; 81015; 82607; 82728; 82746; 83615; 83690; 84132; 84484; 84550; 85025; 85027; 85610; 85730; 86704; 86706; 86803; 87340; 88305; 88333; 88341; 88342; 93005; 93971; 96361; 96374; 96375; 96376; 99285; A9575; Q9967

== ENCOUNTER 2025-06-23 12:04 | Emergency (ER) | payer BC, SELFPAY ==
[2025-06-23] VITALS (8 sets, daily range): BP systolic 120–183; BP diastolic 63–97; BMI 22.4
--- NOTE | 2025-06-23 13:17 | ED.GENMED ---
Addendum entered and electronically signed by Samuel Blanco PA-C 06/23/25 20:17:
Initial prescription for Dilaudid was 2 mg however the pharmacy does not have those. I prescribed a new prescription of 4 mg tablets and the instructions were to take half a tablet every 6 hours as needed for pain
Original Note:
History of Present Illness
<Samuel Blanco PA-C - Last Filed: 06/23/25 18:59>
General
Chief Complaint: Cancer Problem
Source: patient
Exam Limitations: none
Time Seen by Provider: 06/23/25 12:55
History of Present Illness
History of Present Illness:
60-year-old male with recent diagnosis of renal cancer with metastasis to the liver and multiple areas of thrombosis on Eliquis presents from home after recently being discharged from here with complaints of increased pain to the abdomen and pelvis.
He was prescribed oxycodone to go home with but then was switched to tramadol. None of these are working or for his pain. He does not see the for the initial appointment until 5 days from now. He denies chest pain. He does note constipation.
He has been using milk of magnesia as well as MiraLAX.
Phy Exam
<Samuel Blanco PA-C - Last Filed: 06/23/25 18:59>
Physical Exam
Physical Exam:
General: Cachectic appearing male no acute respiratory distress
HEENT normal cephalic
Heart: Regular rate and rhythm lungs: Clear no wheeze
Abdomen is distended firm and tender diffusely
Extremities: No cyanosis mild edema to the right lower extremity
Skin is warm without rash
Course
<Samuel Blanco PA-C - Last Filed: 06/23/25 18:59>
Orders/Labs/Results
Orders:
Orders
06/23/25 13:16
CT Abd/pelvis W Iv Cont Urgent
Comment:
Reason For Exam: increased pain, known CA
0.9% Sodium Chloride 500 ml [Nss] 500 ml IV BOLUS
HYDROmorphone [Dilaudid] 0.5 mg IV NOW STA
06/23/25 13:42
Complete Blood Count/With Diff Urgent
Comprehensive Metabolic Panel Urgent
Abnormal Lab Results
06/23/25
13:42
RBC 4.10 L 10^6/uL
(4.70-6.10)
Hgb 12.8 L g/dL
(13.0-18.0)
Hct 38.4 L %
(39.0-52.0)
MCH 31.2 H pg
(27.0-31.0)
Absolute Lymphs (auto) 0.7 L 10^3/uL
(1.2-3.4)
Absolute Monos (auto) 0.9 H 10^3/uL
(0.1-0.6)
Neutrophils % 77.2 H %
(42.2-75.2)
Lymphocytes % 8.9 L %
(20.5-51.1)
Monocytes % 12.8 H %
(1.7-9.3)
Sodium 129 L mmol/L
(135-145)
BUN 24 H mg/dl
(9-20)
Creatinine 1.5 H mg/dL
(0.7-1.3)
Glucose 106 H mg/dl
(70-99)
AST 233 H U/L
(17-59)
ALT 203 H U/L
(0-50)
Alkaline Phosphatase 531 H U/L
(38-126)
06/23/25 13:42
06/23/25 13:42
Vital Signs
Initial and Last Documented VS:
Initial Vital Signs
Pulse Resp Pulse Ox
117 18 100
06/23/25 12:16 06/23/25 12:16 06/23/25 12:16
Last Documented Vital Signs
Temp Pulse Resp BP Pulse Ox
98.6 F 86 14 144/92 98
06/23/25 15:00 06/23/25 18:15 06/23/25 18:15 06/23/25 18:00 06/23/25 18:15
<Harry Jackson MD - Last Filed: 06/23/25 13:38>
Orders/Labs/Results
Orders:
Orders
06/23/25 13:16
CT Abd/pelvis W Iv Cont Urgent
Comment:
Reason For Exam: increased pain, known CA
0.9% Sodium Chloride 500 ml [Nss] 500 ml IV BOLUS
HYDROmorphone [Dilaudid] 0.5 mg IV NOW STA
06/23/25 13:42
Complete Blood Count/With Diff Urgent
Comprehensive Metabolic Panel Urgent
Abnormal Lab Results
06/23/25
13:42
RBC 4.10 L 10^6/uL
(4.70-6.10)
Hgb 12.8 L g/dL
(13.0-18.0)
Hct 38.4 L %
(39.0-52.0)
MCH 31.2 H pg
(27.0-31.0)
Absolute Lymphs (auto) 0.7 L 10^3/uL
(1.2-3.4)
Absolute Monos (auto) 0.9 H 10^3/uL
(0.1-0.6)
Neutrophils % 77.2 H %
(42.2-75.2)
Lymphocytes % 8.9 L %
(20.5-51.1)
Monocytes % 12.8 H %
(1.7-9.3)
Sodium 129 L mmol/L
(135-145)
BUN 24 H mg/dl
(9-20)
Creatinine 1.5 H mg/dL
(0.7-1.3)
Glucose 106 H mg/dl
(70-99)
AST 233 H U/L
(17-59)
ALT 203 H U/L
(0-50)
Alkaline Phosphatase 531 H U/L
(38-126)
06/23/25 13:42
06/23/25 13:42
Vital Signs
Initial and Last Documented VS:
Initial Vital Signs
Pulse Resp Pulse Ox
117 18 100
06/23/25 12:16 06/23/25 12:16 06/23/25 12:16
Last Documented Vital Signs
Temp Pulse Resp BP Pulse Ox
98.6 F 86 14 144/92 98
06/23/25 15:00 06/23/25 18:15 06/23/25 18:15 06/23/25 18:00 06/23/25 18:15
<Samuel Blanco PA-C - Last Filed: 06/23/25 18:59>
MDM/Problems Addressed
Differential Diagnosis Includes:
Patient with known renal cell cancer with metastasis to the liver and multiple areas of thrombus on. Increased pain to the abdomen. Consider constipation versus worsening underlying condition versus perforation. Will check basic labs and repeat
CT with fluids and pain medicine ordered
<Samuel Blanco PA-C - Last Filed: 06/23/25 18:59>
*Pulse Oximetry
SaO2: 100
Patient hypoxic: no
*Critical Care Note
Total Time (30-74mins, 75-104mins- exclusive of procedures): Not Applicable
<Samuel Blanco PA-C - Last Filed: 06/23/25 18:59>
Update Note
Update Note:
CT shows known metastatic illness but no acute finding of perforation. He does feel more comfortable after IV Dilaudid. He will get another dose. Long discussion was had with patient and family ember in the room as far as options. Offered
admission for pain control or discharge. Will discharge him with a course of Dilaudid by mouth until he sees his pustulous has follow-up
ED Attending Note
<Samuel Blanco PA-C - Last Filed: 06/23/25 18:59>
-
Portions of this chart may have been created with voice recognition software.� Occasional wrong word or��sound alike� substitutions may have occurred due to the inherent limitations of voice recognition software.
<Harry Jackson MD - Last Filed: 06/23/25 13:38>
ED Attending Note
Patient seen and examined by attending physician: Yes
I performed the substantive portion of visit, reviewed & personally made and approve the management plan that is documented in note by myself or NAKIA.: Yes
ED Attending Note:
60-year-old male complaining of increased abdominal girth and abdominal pain. Recent diagnosis of metastatic renal cell CA. A few episodes of vomiting. No fever. Outpatient pain management is not working.
On exam his patient is nontoxic. Slightly thin. No respiratory distress. Lungs are clear and equal. Heart regular rate and rhythm. Abdomen distended and hard. Bowel sounds present. No rebound or guarding.
Extremities with moderate pitting edema bilaterally right greater than left.
Previous records reviewed. Previous scans reviewed.
Medical decision making: Possible secondary issue related to his metastatic CA. CT scan pending. Labs pending.
Discharge Plan
Departure
Patient Disposition: Home (Routine Discharge)
Date of Disposition: 06/23/25
Time of Disposition: 18:55
Patient with high blood pressure during this ER visit?: No
Discharge Problem:
Metastatic cancer
Prescriptions:
New
hydromorphone [Dilaudid] 2 mg tablet
2 mg PO Q6H PRN (Reason: Pain) Qty: 20 0RF
Rx Instructions:
Ongoing therapy
No Action
fluvoxamine 100 mg tablet
100 mg PO DAILY
fluvoxamine 100 mg tablet
150 mg PO HS
bupropion HCl 200 mg tablet sustained-release 12 hr
200 mg PO BID
alprazolam 3 mg tablet extended release 24 hr
3 mg PO DAILY
Eliquis 5 mg tablet
See Rx Instructions .ROUTE .COMPLEX Qty: 74 0RF
Rx Instructions:
Take 10mg BID for 7 days, then 5mg BID until told to stop by doctor
ondansetron 4 mg tablet,disintegrating
4 mg PO Q8H PRN (Reason: nausea and vomiting) Qty: 30 0RF
oxycodone 10 mg tablet
10 mg PO Q8H PRN (Reason: Pain) Qty: 9 0RF
tramadol 50 mg Tablet
50 mg PO Q6H PRN (Reason: generalized pain)
Referrals:
Zaheer Kendall, DO [Family Provider, Hematology / Oncology]
Activity Restrictions/Additional Instructions:
Continue to follow-up with oncologist as planned. Also consider following up with palliative care for further pain management. Call to set an appointment
Interventions
Interventions:
*Risk Screen - Suicide Last Done: 06/23/25 13:47
*General Assessment Last Done: 06/23/25 13:47
*Neglect/Abuse Screening Last Done: 06/23/25 13:47
*ED- Fall Risk Assessment Last Done: 06/23/25 13:47
*ED COVID-19 Vaccine History Last Done: 06/23/25 13:47
*ED Influenza Vaccine History Last Done: 06/23/25 13:47
Discharge Date and Time
Print Language: FAROESE
[2025-06-23] MEDS: DILAUDID 0.5 MG IV ×2 (13:39→19:02)
[2025-06-23] MEDS: NSS 500 IV (13:39)
[2025-06-23 13:55] LABS: Hematocrit 38.4 % (39.0-52.0); Hemoglobin 12.8 g/dL (13.0-18.0); Mean Corp Hgb Conc. 33.3 g/dL (33.0-37.0); Mean Corpuscular Volume 93.7 fL (80.0-94.0); Nucleated Red Blood Cells % 0 % (-); Platelet Count 234 10^3/uL (130-400); Red Cell Dist. Width 14.4 % (11.5-14.5)
[2025-06-23 14:07] LABS: ALT (SGPT) 203 U/L (0-50); AST (SGOT) 233 U/L (17-59); Albumin 4.0 g/dl (3.5-5.0); Alkaline Phosphatase 531 U/L (38-126); Blood Urea Nitrogen 24 mg/dl (9-20); Calcium 10.0 mg/dl (8.4-10.2); Carbon Dioxide 27 mmol/L (22-30); Chloride 98 mmol/L (98-107); Estimated Creatinine Clearance 54 ml/min; Glucose 106 mg/dl (70-99); Potassium 4.4 mmol/L (3.5-5.1); Sodium 129 mmol/L (135-145); Total Protein 7.4 g/dl (6.3-8.2); eGFR 52.31
== END 2025-06-23 19:28 | disposition home or self-care (01) ==
LOC: EMR 12:04
PROVIDERS: Physician Assistant; EMERGENCY PHYSICIAN Emergency Medicine; FAMILY PHYSICIAN Internal Medicine Hematology & Oncology
DX: R10.9 Unspecified abdominal pain (principal); R10.20 Pelvic and perineal pain unspecified side
CPT/HCPCS: 99284; 96374; 96376; 96361; 74177; 80053; 85025; Q9967

== ENCOUNTER 2025-07-01 10:47 | Emergency (ER) | payer BC, SELFPAY ==
[2025-07-01] VITALS (9 sets, daily range): BP systolic 118–132; BP diastolic 78–90; BMI 24.4
[2025-07-01 12:05] LABS: Hematocrit 36.9 % (39.0-52.0); Hemoglobin 12.6 g/dL (13.0-18.0); Mean Corp Hgb Conc. 34.1 g/dL (33.0-37.0); Mean Corpuscular Volume 92.3 fL (80.0-94.0); Nucleated Red Blood Cells % 0 % (-); Platelet Count 244 10^3/uL (130-400); Red Cell Dist. Width 14.4 % (11.5-14.5)
[2025-07-01 12:11] LABS: Ammonia < 9 umol/L (9-30)
[2025-07-01 12:22] LABS: ALT (SGPT) 218 U/L (0-50); AST (SGOT) 354 U/L (17-59); Albumin 3.7 g/dl (3.5-5.0); Alkaline Phosphatase 729 U/L (38-126); Blood Urea Nitrogen 32 mg/dl (9-20); Calcium 10.2 mg/dl (8.4-10.2); Carbon Dioxide 31 mmol/L (22-30); Chloride 93 mmol/L (98-107); Estimated Creatinine Clearance 56 ml/min; Glucose 99 mg/dl (70-99); Magnesium 2.2 mg/dl (1.6-2.3); Potassium 4.9 mmol/L (3.5-5.1); Sodium 128 mmol/L (135-145); Total Protein 7.1 g/dl (6.3-8.2); eGFR 52.31
[2025-07-01 12:31] LABS: Troponin I 0.013 ng/ml
--- NOTE | 2025-07-01 12:45 | ED.GENMED ---
History of Present Illness
General
Chief Complaint: Abnormal Lab Value
Source: patient
Exam Limitations: none
Time Seen by Provider: 07/01/25 11:21
Nursing documentation reviewed up to this point in time: agreed with
History of Present Illness
History of Present Illness:
Patient is a 60-year-old male with recent diagnosis of metastatic neuroendocrine cancer who presents to the emergency department with elevated potassium found on outpatient lab work. Patient states that outpatient labwork obtained by PCP revealed a
potassium level of 6.1 and he was instructed to present immediately to emergency department.
He also reports new onset swelling of penis and scrotum. He initially noticed this yesterday and denies any associated pain or redness. No dysuria or hematuria.
He notes progressive dyspnea with minimal exertion. No chest pain. No fevers or productive cough. No vomiting
Patient is anticoagulated on eliquis and compliant with medication.
He follows with Dr. Kendall as oncologist and is scheduled for port placement on Thursday.
Review of Systems
Review of Systems
Allergies reviewed?: Yes
All Other Systems: ROS reviewed and negative except as documented in HPI and ROS
Phy Exam
Physical Exam
Physical Exam:
Vitals: Patient's vital signs are stable. Afebrile
General: Patient is cachectic and frail appearing.
Skin: Warm and dry, no rashes or lesions
Head: Normocephalic, atraumatic
Eyes: Sclera nonicteric.
Throat: Protecting airway
Neck: Normal ROM, no cervical spine tenderness, no meningismus
Cardiac: Regular rate and rhythm, no murmurs. No reproducible chest wall tenderness.
Pulm: Normal respiratory effort. Lungs clear bilaterally.
.
Abdomen: Distended and firm. No focal areas of tenderness.
: Edema of penis and scrotum. No tenderness or erythema.
Extremities: Edema of bilateral lower extremities. Distal pulses intact.
Neuro: AAOx3. Grossly intact.
Psychiatric: Normal affect.
Course
Orders/Labs/Results
Orders:
Orders
07/01/25 10:56
EKG [Electrocardiogram (*1)] Urgent
Reason for Study: Abnormal EKG
07/01/25 10:57
EKG- Treatment ONCE
07/01/25 11:47
CR Chest - 2 Views Urgent
Comment:
Reason For Exam: SOB
07/01/25 11:52
Ammonia Urgent
Complete Blood Count/With Diff Urgent
Comprehensive Metabolic Panel Urgent
Magnesium Urgent
NT-proBNP Urgent
Troponin I Urgent
07/01/25 14:49
HYDROmorphone [Dilaudid] 2 mg PO NOW STA
Ondansetron HCl [Zofran] 4 mg PO NOW STA
07/01/25 14:52
Electrocardiogram (*1) Urgent
Reason for Study: Shortness of Breath
EKG- Treatment ONCE
07/01/25 14:55
Troponin I Urgent
07/01/25 16:19
HYDROmorphone [Dilaudid] 0.25 mg IV NOW STA
07/01/25 16:58
Amoxicillin 875 mg/Clav 125 mg [Augmentin 875 mg/125 mg] 1 tablet PO NOW STA
Azithromycin [Zithromax] 500 mg PO NOW STA
Abnormal Lab Results
07/01/25
11:52
RBC 4.00 L 10^6/uL
(4.70-6.10)
Hgb 12.6 L g/dL
(13.0-18.0)
Hct 36.9 L %
(39.0-52.0)
MCH 31.5 H pg
(27.0-31.0)
Absolute Neuts (auto) 7.1 H 10^3/uL
(1.4-6.5)
Absolute Lymphs (auto) 0.5 L 10^3/uL
(1.2-3.4)
Absolute Monos (auto) 1.0 H 10^3/uL
(0.1-0.6)
Neutrophils % 81.9 H %
(42.2-75.2)
Lymphocytes % 5.9 L %
(20.5-51.1)
Monocytes % 11.1 H %
(1.7-9.3)
Sodium 128 L mmol/L
(135-145)
Chloride 93 L mmol/L
(98-107)
Carbon Dioxide 31 H mmol/L
(22-30)
BUN 32 H mg/dl
(9-20)
Creatinine 1.5 H mg/dL
(0.7-1.3)
AST 354 H U/L
(17-59)
ALT 218 H U/L
(0-50)
Alkaline Phosphatase 729 H U/L
(38-126)
Ammonia < 9 L umol/L
(9-30)
07/01/25 11:52
07/01/25 11:52
Vital Signs
Initial and Last Documented VS:
Initial Vital Signs
Temp Pulse Resp BP Pulse Ox
98.9 F 96 18 119/79 98
07/01/25 10:51 07/01/25 10:51 07/01/25 10:51 07/01/25 10:51 07/01/25 10:51
Last Documented Vital Signs
Temp Pulse Resp BP Pulse Ox
98.9 F 81 10 131/80 98
07/01/25 10:51 07/01/25 17:00 07/01/25 17:00 07/01/25 17:00 07/01/25 17:00
MDM/Problems Addressed
Differential Diagnosis Includes:
Not limited to: electrolyte abnormality, progression of disease, peripheral edema, pneumonia, congestive heart failure, ACS, etc
MDM/Problems Addressed:
60-year-old male with recent diagnosis of metastatic neuroendocrine cancer presenting with elevated potassium seen on outpatient labs. Also new onset scrotal/penile swelling. He has stable vital signs. On exam, patient is cachectic appearing
however in no distress. Cardio/pulmonary assessment unremarkable. Abdomen is distended and somewhat firm however unchanged from prior. He does have significant scrotal and penile swelling without any associated tenderness or erythema. Initial
EKG on arrival shows normal sinus rhythm without T wave abnormality, QRS widening, or prolonged QTc.
Basic labs were sent which revealed normal potassium level. Hyponatremia appears stable. LFTs are increased from last check likely due to progression of disease. Renal insufficiency stable. Given history of exertional dyspnea, a cardiac workup
was performed with 2 negative troponins. Chest x-ray shows possible pneumonia. He is afebrile, not hypoxic with very minimal cough, however given significant comorbidities we will plan to treat with antibiotics.
Workup in ED without any significant acute findings. Suspect scrotal/penile swelling likely secondary to overall edematous state from liver/kidney dysfunction secondary to malignancy. Dyspnea likely multifactorial with increased fluid and liver
enlargement. He has known IVC thrombus, however, is anticoagulated, not hypoxic or in any respiratory distress.
Case was discussed with patient's oncologist, Dr. Kendall. No acute findings noted. No clear indication for admission. I did offer patient admission for pain management and further monitoring however he feels comfortable discharge home. Will treat
pneumonia with oral antibiotics. He is scheduled for port placement on Thursday. He will continue to follow-up with oncology outpatient. Very strict return precautions discussed. Patient verbalized understanding is comfortable with plan.
Chronic conditions affecting care:
Metastatic neuroendocrine CA
Acute Exacerbation and/or Progression of Chronic Illness:
N/A
*Radiology
Radiology exam reviewed: radiology read reviewed
*Pulse Oximetry
SaO2: 95
Oxygen Mode of Delivery: Room air
Patient hypoxic: no
*EKG
Interpreted by ED Provider?: Yes
EKG Intrepretation Date: 07/01/25
Interpretation: abnormal
Comparison EKG: changes noted
Heart Rate: 96
Rate: normal
Rhythm: sinus
[place]: normal axis
Interval: normal QT interval
QRS Pattern: low voltage
Ischemia: no ischemia
*Material Control Associate Interpretation
Rate: normal
Interpretation: normal
Heart Rate: 86
Rhythm: sinus
*Critical Care Note
Total Time (30-74mins, 75-104mins- exclusive of procedures): Not Applicable
Patient Management
Discussion with other providers: Roll Former (Case discussed w/ Dr. Enoch may/onc)
ED Attending Note
-
Portions of this chart may have been created with voice recognition software.� Occasional wrong word or��sound alike� substitutions may have occurred due to the inherent limitations of voice recognition software.
Discharge Plan
Departure
Patient Disposition: Home (Routine Discharge)
Date of Disposition: 07/01/25
Time of Disposition: 17:18
Patient with high blood pressure during this ER visit?: No
Discharge Problem:
Metastatic cancer, Right lower lobe pneumonia, Dyspnea, Testicular swelling
Instructions: Pneumonia in adults - ED (DC), BLOOD PRESSURE
Prescriptions:
New
azithromycin 250 mg tablet
250 mg PO DAILY 4 Days Qty: 4 0RF
amoxicillin-pot clavulanate 875-125 mg tablet
1 tab PO BID 5 Days Qty: 10 0RF
No Action
fluvoxamine 100 mg tablet
100 mg PO DAILY
fluvoxamine 100 mg tablet
150 mg PO HS
bupropion HCl 200 mg tablet sustained-release 12 hr
200 mg PO BID
alprazolam 3 mg tablet extended release 24 hr
3 mg PO DAILY
ondansetron 4 mg tablet,disintegrating
4 mg PO Q8H PRN (Reason: nausea and vomiting) Qty: 30 0RF
hydromorphone [Dilaudid] 4 mg tablet
2 mg PO Q6H PRN (Reason: Pain) Qty: 10 0RF
Rx Instructions:
ongoing therapy
Eliquis 5 mg Tablet
5 mg PO Q12
hydromorphone [Dilaudid] 2 mg tablet
2 mg PO QID
Rx Instructions:
Ongoing therapy
Referrals:
Zaheer Kendall DO [Active, Hematology / Oncology] - Next open appointment
KACI MEDINA DO [Family Provider, Family Practice]
Activity Restrictions/Additional Instructions:
RETURN TO THE EMERGENCY DEPARTMENT ANY FEVER, CHILLS, WORSENING SHORTNESS OF BREATH, PAIN/REDNESS, OR WORSENING SWELLING IN GROIN, WORSENING IN CURRENT SYMPTOMS, OR ANY OTHER CONCERNS
Your potassium level was normal today in the emergency department. Please have this repeated with your primary care to ensure it remains stable.-
- Please take antibiotics as directed for possible pneumonia. Monitor closely for any worsening of symptoms.
- Continue to take pain medications as prescribed.
- Follow-up with your primary care provider in early next week to ensure your symptoms are improving and that swelling in groin has not worsened. Stay well-hydrated.
-You should also follow-up with oncology for further evaluation and management as directed.
Monitor your symptoms very closely and return to the emergency department with any acute worsening/new symptoms or any signs of worsening infection
Interventions
Interventions:
*Risk Screen - Suicide Last Done: 07/01/25 10:51
*General Assessment Last Done: 07/01/25 10:51
*Neglect/Abuse Screening Last Done: 07/01/25 10:51
*ED- Fall Risk Assessment Last Done: 07/01/25 10:56
*ED COVID-19 Vaccine History Last Done: 07/01/25 10:56
*ED Influenza Vaccine History Last Done: 07/01/25 10:56
*Nursing Disposition Last Done: 07/01/25 17:51
Discharge Date and Time
Discharge Date/Time: 07/01/25 17:52
Print Language: ROMANSH
[2025-07-01] MEDS: DILAUDID 2 MG PO (15:00)
[2025-07-01] MEDS: ZOFRAN 4 MG PO (15:00)
[2025-07-01 15:37] LABS: Troponin I 0.013 ng/ml
[2025-07-01] MEDS: DILAUDID 0.25 MG IV (16:28)
[2025-07-01] MEDS: ZITHROMAX 500 MG PO (17:09)
[2025-07-01] MEDS: AUGMENTIN 875 MG/125 MG 1 TABLET PO (17:09)
== END 2025-07-01 17:52 | disposition home or self-care (01) ==
LOC: EMR 10:47
PROVIDERS: Physician Assistant; Student in an Organized Health Care Education/Training Program; EMERGENCY PHYSICIAN Emergency Medicine; FAMILY PHYSICIAN Student in an Organized Health Care Education/Training Program
DX: C7A.8 Other malignant neuroendocrine tumors (principal); J18.9 Pneumonia, unspecified organism; R06.00 Dyspnea, unspecified; N50.89 Other specified disorders of the male genital organs; E87.1 Hypo-osmolality and hyponatremia; I82.220 Acute embolism and thrombosis of inferior vena cava; N28.9 Disorder of kidney and ureter, unspecified; Z79.01 Long term (current) use of anticoagulants
CPT/HCPCS: 99284; 96374; 71046; 80053; 82140; 83735; 83880; 84484; 85025; 93005

== ENCOUNTER → 2025-07-03 12:54 | Outpatient (REF) | payer BC, SELFPAY ==
[2025-07-03 13:31] VITALS: BP 124/88; BMI 23.7
[2025-07-03] MEDS: ANCEF 10 IV (13:46)
[2025-07-03 15:00] VITALS: BP 129/86; BP_SYST 93
[2025-07-03 15:05] VITALS: BP 129/86; BP_SYST 93
[2025-07-03 15:15] VITALS: BP 124/82
== END ==
LOC: RADI 12:54
PROVIDERS: ATTENDING PHYSICIAN Internal Medicine Hematology & Oncology; FAMILY PHYSICIAN Student in an Organized Health Care Education/Training Program
DX: C7A.8 Other malignant neuroendocrine tumors (principal)
CPT/HCPCS: 36561; 76937; 77001; 99152; 99153; C1788

== ENCOUNTER 2025-07-12 18:25 | Inpatient (IN) | payer BC, SELFPAY ==
[2025-07-12 14:00] VITALS: BP 125/85
[2025-07-12 14:10] VITALS: BP 118/55
[2025-07-12 14:30] VITALS: BMI 27.2
--- NOTE | 2025-07-12 14:31 | ED.GENMED ---
History of Present Illness
<Nani Aviles NP - Last Filed: 07/12/25 16:32>
General
Chief Complaint: Breathing Problem
Source: patient and spouse
Exam Limitations: none
Time Seen by Provider: 07/12/25 14:16
Nursing documentation reviewed up to this point in time: agreed with
History of Present Illness
History of Present Illness:
Patient sent to the emergency department by [facility] for shortness of breath and elevated heart rate. 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 He had his
first chemoinfusion yesterday, and was scheduled for his next infusion today. When he arrived at the [facility] staff noticed his elevated heart rate and increasing shortness of breath. Patient and state that he tolerated the chemotherapy
yesterday and felt well until this a.m. He reports increasing edema to bilateral lower extremities groin and abdomen. He denies any chest pain but reports worsening dyspnea on exertion. He does have a cough. He denies fever or chills. He denies
any nausea or vomiting. Denies diarrhea. Patient and spouse both agree that his appetite was great yesterday and he has been keeping himself well-hydrated. Heart rate on arrival to the emergency department was low 120s, sinus rhythm. Pulse ox is
95% on 4L NC.
Past History
<Nani Aviles RADIO COMMUNICATIONS MECHANICIAN - Last Filed: 07/12/25 16:32>
Past History
ED Past Medical History: Cancer (Metastatic neuroendocrine carcinoma)
Review of Systems
<Nani Aviles RADIO COMMUNICATIONS MECHANICIAN - Last Filed: 07/12/25 16:32>
Review of Systems
Allergies reviewed?: Yes
All Other Systems: ROS reviewed and negative except as documented in HPI and ROS
Constitutional: Reports fatigue
EENT: Reports no symptoms
Respiratory: Reports trouble breathing (DUENAS)
Cardiac: Reports other (Tachycardia)
ABD/GI: Reports other (Abdominal distention)
: Reports no symptoms
Musculoskeletal: Reports edema (Anasarca)
Skin: Reports no symptoms
Neurological: Reports weakness
Psychiatric: Reports no symptoms
Phy Exam
<Nani Aviles RADIO COMMUNICATIONS MECHANICIAN - Last Filed: 07/12/25 16:32>
General Physical Exam
General Presentation: moderate distress
General Skin: warm and dry
General Habitus: cachetic and frail
General Mental: alert
Cardiovascular Exam
Cardiovascular Exam: tachycardia
Pulmonary Exam
Pulmonary Exam: chest non tender and decreased breath sounds
Oxygen Status: oxygen 4 liters via NC (pulse ox 95%)
Cough: coarse cough
Gastrointestinal Exam
Gastrointestinal Exam: normal bowel sounds, no pulsatile mass and distended
Musculoskeletal Exam
Musculoskeletal Exam: full ROM and neuro vasc intact
Skin Exam
Skin Exam: normal color, warm/dry and no rash
Psychiatric Exam
Psychiatric Exam: normal mood/affect
Scores
<Nani Aviles RADIO COMMUNICATIONS MECHANICIAN - Last Filed: 07/12/25 16:32>
Heart Failure Risk
Heart Failure Risk Score: Not Applicable
Course
<Nani Aviles RADIO COMMUNICATIONS MECHANICIAN - Last Filed: 07/12/25 16:32>
Orders/Labs/Results
Orders:
Orders
07/12/25 Breakfast
Regular
At Your Request: Full Participation
Does patient need a safe tray?: No
07/12/25 13:55
Electrocardiogram (*1) Urgent
Reason for Study: Tachycardia
EKG- Treatment ONCE
07/12/25 14:31
CR Chest - 2 Views Urgent
Comment:
Reason For Exam: SOB
07/12/25 15:50
Complete Blood Count/With Diff Urgent
Comprehensive Metabolic Panel Urgent
07/12/25 15:52
Heparin Pf [Heparin Lock Flush] 500 unit .ROUTE .STK-MED ONE
07/12/25 16:14
Cefepime HCl [Maxipime] 2,000 mg IV NOW STA
07/12/25 16:19
Sterile Water [Sterile Water For Injection] 10 ml .ROUTE .STK-MED ONE
07/12/25 16:28
0.9% Sodium Chloride 500 ml [Nss] 500 ml IV BOLUS
07/12/25 16:45
Heparin Pf [Heparin Lock Flush] 500 unit IV PER PROTOCOL
07/12/25 16:48
Lactic Acid Urgent
07/12/25 17:02
INFECTIOUS DISEASE CONSULT Routine
Consulting Provider: Arpan Pryor
Was physician already notified: Yes
ONCOLOGY CONSULT Routine
Consulting Provider: Zaheer Kendall
Was physician already notified: Yes
07/12/25 17:04
MRSA Screen Routine
HERMELINDO Source: Nose
Specimen Description:
07/12/25 17:07
Urine Osmolality Random [Osmolality, Random Urine] Routine
Urine Sodium Routine
07/12/25 17:15
Blood Culture Q30M
HERMELINDO Source: Blood/Venous
Specimen Description:
07/12/25 17:44
Admit/Transfer Patient As Directed
Co-Sign Provider:
Level of Care: Inpatient admission
Assign to:: Telemetry
Physician / Group: steven
Diagnosis: acute hypoxic respiratory failure
Reason for Telemetry: Arrhythmia
Date to Stop Telemetry: 07/15/25
Time to Stop Telemetry: 11:00
Reason for Hospitalization: acute hypoxic
Expected length of stay greater than two midnights?: Yes
ELOS- Estimated Length of Stay in days: 3
I certify the patient meets the requirements for IP care: Yes
07/12/25 17:45
Blood Culture Q30M
HERMELINDO Source: Blood/Venous
Specimen Description:
PRN Pain Medication Management As Directed
May give lesser potent ordered pain med per pt: Yes
preference::
Protocol:: Medication orders for pain may be administered in a
manner that supports deferring to patient preference
when the pt is:
- Requesting an ordered lesser potent pain medication.
Least to most potent pain medications are defined
as: acetaminophen < NSAID < tramadol < opioids
(morphine, oxycodone, hydromorphone).
- Requesting a lesser dose of the same medication IF
ORDERED.
- Requesting a less intrusive route of administration
if both routes are prescribed by the provider (PO <
IV).
07/12/25 17:47
Code Status As Directed
Resuscitation Status: Full Code
07/12/25 18:03
Sps Sodium Polystyrene Sulfon [Kayexalate Suspension] 15 grams PO NOW STA
07/12/25 18:33
COVID-19 Antigen Routine
Source: Nasal Swab
Influenza A+B Rapid Molecular Routine
HERMELINDO Source: Nasal Swab
Specimen Description:
07/12/25 19:31
HYDROmorphone [Dilaudid] 0.25 mg IV Q4HPRN PRN
Ondansetron Orally Disint [Zofran Odt (Orally Disintegrating)] 4 mg PO Q8HPRN PRN nausea and vomiting
Polyethylene Glycol Powder [Miralax] 17 grams PO DAILYPRN PRN constipation
07/12/25 19:31
IRAD CONSULT Routine
Consulting Provider: Joe Marquez
Was physician already notified: Yes
Procedure being ordered, including laterality if applicable: paracentesis
Acknowledgement that appropriate orders are entered: Yes
Body Fluid Albumin Routine
Fluid Source: Peritoneal (Ascites)
Body Fluid Amylase Routine
Fluid Source: Peritoneal (Ascites)
Body Fluid Cell Count Routine
What is the Body Fluid: peritoneal fluid
Comment: post procedure
Body Fluid LDH Routine
Fluid Source: Peritoneal (Ascites)
Body Fluid Protein Routine
Fluid Source: Peritoneal (Ascites)
Fluid Culture with Gram Stain Routine
HERMELINDO Source: Peritoneal Fluid
Specimen Description:
Comment: Post Procedure
Gram Stain Routine
HERMELINDO Source: Peritoneal Fluid
Specimen Description:
Comment: Post Procedure
Legionella Urinary Antigen Routine
HERMELINDO Source: Urine
Specimen Description:
Respiratory Culture/Gram Stain Urgent
HERMELINDO Source: Sputum
Specimen Description:
Strep pneumoniae Antigen Routine
HERMELINDO Source: Urine
Specimen Description:
Activity As Directed
Activity Level: Out of Bed-Early Mobility
Enema As Directed
Type: Milk and molasses
Amount: 1
Frequency: daily
Intake/ Output As Directed
Frequency: Per unit guidelines
Vital Signs As Directed
Frequency: Per unit guidelines
Weight As Directed
Frequency: Once
Comment: on admission
IRAD Cytology Routine
Source: Peritoneal Fluid
Clinical Impression: ascites
O2 Therapy [RESP] Routine
Titrate/Wean O2 to maintain O2 sat greater than (%): 95
Special Instructions: Wean as tolerated
Pt Eval And Treat Routine
Activity Level: As Tolerated
Speech Therapy Eval & Treat Routine
07/12/25 20:00
Alprazolam [Xanax] 1.5 mg PO BID
Apixaban [Eliquis] 5 mg PO BID
Bupropion(12Hr)Sustain Release [WELLBUTRIN SR (12 hour sustained release)] 200 mg PO BID
07/12/25 22:00
Fluvoxamine [Luvox] 100 mg PO HS
Magnesium Hydroxide [Milk of Magnesia] 30 ml PO QID
07/13/25 00:00
Cefepime HCl [Maxipime] 1,000 mg IV Q8H
07/13/25 06:00
Complete Blood Count/No Diff IN AM
Comprehensive Metabolic Panel IN AM
07/13/25 08:00
Fluvoxamine [Luvox] 150 mg PO DAILY
07/13/25 13:00
Docusate Sodium [Colace] 100 mg PO DAILY@1300
07/14/25 06:00
Complete Blood Count/No Diff IN AM
Comprehensive Metabolic Panel IN AM
07/15/25 06:00
Complete Blood Count/No Diff IN AM
Comprehensive Metabolic Panel IN AM
07/15/25 11:00
DC Protocol for Telemetry ONCE
07/16/25 06:00
Complete Blood Count/No Diff IN AM
Comprehensive Metabolic Panel IN AM
Abnormal Lab Results
07/12/25 07/12/25
15:50 16:48
WBC 19.5 H 10^3/uL
(4.8-10.8)
RBC 4.09 L 10^6/uL
(4.70-6.10)
Hct 38.3 L %
(39.0-52.0)
MCH 32.8 H pg
(27.0-31.0)
RDW 15.5 H %
(11.5-14.5)
Abs Immat Gran (auto) 0.1 H 10^3/uL
(0-0.05)
Absolute Neuts (auto) 18.5 H 10^3/uL
(1.4-6.5)
Absolute Lymphs (auto) 0.4 L 10^3/uL
(1.2-3.4)
Immature Gran % 0.6 H %
(0-0.5)
Neutrophils % 94.8 H %
(42.2-75.2)
Lymphocytes % 1.8 L %
(20.5-51.1)
Sodium 126 L mmol/L
(135-145)
Potassium 5.8 H mmol/L
(3.5-5.1)
Chloride 94 L mmol/L
(98-107)
BUN 46 H mg/dl
(9-20)
Creatinine 1.5 H mg/dL
(0.7-1.3)
Glucose 106 H mg/dl
(70-99)
Lactic Acid 4.4 H* mmol/L
(0.7-2.0)
Calcium 10.5 H mg/dl
(8.4-10.2)
Total Bilirubin 1.6 H mg/dl
(0.2-1.3)
AST 514 H* U/L
(17-59)
ALT 256 H U/L
(0-50)
Alkaline Phosphatase 1010 H U/L
(38-126)
Albumin 3.4 L g/dl
(3.5-5.0)
07/12/25 15:50
07/12/25 15:50
Vital Signs
Initial and Last Documented VS:
Initial Vital Signs
Temp Pulse Resp BP Pulse Ox
98.4 F 124 20 125/85 94
07/12/25 14:00 07/12/25 14:00 07/12/25 14:00 07/12/25 14:00 07/12/25 14:00
Last Documented Vital Signs
Temp Pulse Resp BP Pulse Ox
98.3 F 117 18 113/72 94
07/12/25 20:01 07/12/25 20:01 07/12/25 20:01 07/12/25 20:01 07/12/25 20:01
rosalind;Alex Mistry, - Last Filed: 07/12/25 20:16>
Orders/Labs/Results
Orders:
Orders
07/12/25 Breakfast
Regular
At Your Request: Full Participation
Does patient need a safe tray?: No
07/12/25 13:55
Electrocardiogram (*1) Urgent
Reason for Study: Tachycardia
EKG- Treatment ONCE
07/12/25 14:31
CR Chest - 2 Views Urgent
Comment:
Reason For Exam: SOB
07/12/25 15:50
Complete Blood Count/With Diff Urgent
Comprehensive Metabolic Panel Urgent
07/12/25 15:52
Heparin Pf [Heparin Lock Flush] 500 unit .ROUTE .STK-MED ONE
07/12/25 16:14
Cefepime HCl [Maxipime] 2,000 mg IV NOW STA
07/12/25 16:19
Sterile Water [Sterile Water For Injection] 10 ml .ROUTE .STK-MED ONE
07/12/25 16:28
0.9% Sodium Chloride 500 ml [Nss] 500 ml IV BOLUS
07/12/25 16:45
Heparin Pf [Heparin Lock Flush] 500 unit IV PER PROTOCOL
07/12/25 16:48
Lactic Acid Urgent
07/12/25 17:02
INFECTIOUS DISEASE CONSULT Routine
Consulting Provider: Arpan Pryor
Was physician already notified: Yes
ONCOLOGY CONSULT Routine
Consulting Provider: Zaheer Kendall
Was physician already notified: Yes
07/12/25 17:04
MRSA Screen Routine
HERMELINDO Source: Nose
Specimen Description:
07/12/25 17:07
Urine Osmolality Random [Osmolality, Random Urine] Routine
Urine Sodium Routine
07/12/25 17:15
Blood Culture Q30M
HERMELINDO Source: Blood/Venous
Specimen Description:
07/12/25 17:44
Admit/Transfer Patient As Directed
Co-Sign Provider:
Level of Care: Inpatient admission
Assign to:: Telemetry
Physician / Group: steven
Diagnosis: acute hypoxic respiratory failure
Reason for Telemetry: Arrhythmia
Date to Stop Telemetry: 07/15/25
Time to Stop Telemetry: 11:00
Reason for Hospitalization: acute hypoxic
Expected length of stay greater than two midnights?: Yes
ELOS- Estimated Length of Stay in days: 3
I certify the patient meets the requirements for IP care: Yes
07/12/25 17:45
Blood Culture Q30M
HERMELINDO Source: Blood/Venous
Specimen Description:
PRN Pain Medication Management As Directed
May give lesser potent ordered pain med per pt: Yes
preference::
Protocol:: Medication orders for pain may be administered in a
manner that supports deferring to patient preference
when the pt is:
- Requesting an ordered lesser potent pain medication.
Least to most potent pain medications are defined
as: acetaminophen < NSAID < tramadol < opioids
(morphine, oxycodone, hydromorphone).
- Requesting a lesser dose of the same medication IF
ORDERED.
- Requesting a less intrusive route of administration
if both routes are prescribed by the provider (PO <
IV).
07/12/25 17:47
Code Status As Directed
Resuscitation Status: Full Code
07/12/25 18:03
Sps Sodium Polystyrene Sulfon [Kayexalate Suspension] 15 grams PO NOW STA
07/12/25 18:33
COVID-19 Antigen Routine
Source: Nasal Swab
Influenza A+B Rapid Molecular Routine
HERMELINDO Source: Nasal Swab
Specimen Description:
07/12/25 19:31
HYDROmorphone [Dilaudid] 0.25 mg IV Q4HPRN PRN
Ondansetron Orally Disint [Zofran Odt (Orally Disintegrating)] 4 mg PO Q8HPRN PRN nausea and vomiting
Polyethylene Glycol Powder [Miralax] 17 grams PO DAILYPRN PRN constipation
07/12/25 19:31
IRAD CONSULT Routine
Consulting Provider: Joe Marquez
Was physician already notified: Yes
Procedure being ordered, including laterality if applicable: paracentesis
Acknowledgement that appropriate orders are entered: Yes
Body Fluid Albumin Routine
Fluid Source: Peritoneal (Ascites)
Body Fluid Amylase Routine
Fluid Source: Peritoneal (Ascites)
Body Fluid Cell Count Routine
What is the Body Fluid: peritoneal fluid
Comment: post procedure
Body Fluid LDH Routine
Fluid Source: Peritoneal (Ascites)
Body Fluid Protein Routine
Fluid Source: Peritoneal (Ascites)
Fluid Culture with Gram Stain Routine
HERMELINDO Source: Peritoneal Fluid
Specimen Description:
Comment: Post Procedure
Gram Stain Routine
HERMELINDO Source: Peritoneal Fluid
Specimen Description:
Comment: Post Procedure
Legionella Urinary Antigen Routine
HERMELINDO Source: Urine
Specimen Description:
Respiratory Culture/Gram Stain Urgent
HERMELINDO Source: Sputum
Specimen Description:
Strep pneumoniae Antigen Routine
HERMELINDO Source: Urine
Specimen Description:
Activity As Directed
Activity Level: Out of Bed-Early Mobility
Enema As Directed
Type: Milk and molasses
Amount: 1
Frequency: daily
Intake/ Output As Directed
Frequency: Per unit guidelines
Vital Signs As Directed
Frequency: Per unit guidelines
Weight As Directed
Frequency: Once
Comment: on admission
IRAD Cytology Routine
Source: Peritoneal Fluid
Clinical Impression: ascites
O2 Therapy [RESP] Routine
Titrate/Wean O2 to maintain O2 sat greater than (%): 95
Special Instructions: Wean as tolerated
Pt Eval And Treat Routine
Activity Level: As Tolerated
Speech Therapy Eval & Treat Routine
07/12/25 20:00
Alprazolam [Xanax] 1.5 mg PO BID
Apixaban [Eliquis] 5 mg PO BID
Bupropion(12Hr)Sustain Release [WELLBUTRIN SR (12 hour sustained release)] 200 mg PO BID
07/12/25 22:00
Fluvoxamine [Luvox] 100 mg PO HS
Magnesium Hydroxide [Milk of Magnesia] 30 ml PO QID
07/13/25 00:00
Cefepime HCl [Maxipime] 1,000 mg IV Q8H
07/13/25 06:00
Complete Blood Count/No Diff IN AM
Comprehensive Metabolic Panel IN AM
07/13/25 08:00
Fluvoxamine [Luvox] 150 mg PO DAILY
07/13/25 13:00
Docusate Sodium [Colace] 100 mg PO DAILY@1300
07/14/25 06:00
Complete Blood Count/No Diff IN AM
Comprehensive Metabolic Panel IN AM
07/15/25 06:00
Complete Blood Count/No Diff IN AM
Comprehensive Metabolic Panel IN AM
07/15/25 11:00
DC Protocol for Telemetry ONCE
07/16/25 06:00
Complete Blood Count/No Diff IN AM
Comprehensive Metabolic Panel IN AM
Abnormal Lab Results
07/12/25 07/12/25
15:50 16:48
WBC 19.5 H 10^3/uL
(4.8-10.8)
RBC 4.09 L 10^6/uL
(4.70-6.10)
Hct 38.3 L %
(39.0-52.0)
MCH 32.8 H pg
(27.0-31.0)
RDW 15.5 H %
(11.5-14.5)
Abs Immat Gran (auto) 0.1 H 10^3/uL
(0-0.05)
Absolute Neuts (auto) 18.5 H 10^3/uL
(1.4-6.5)
Absolute Lymphs (auto) 0.4 L 10^3/uL
(1.2-3.4)
Immature Gran % 0.6 H %
(0-0.5)
Neutrophils % 94.8 H %
(42.2-75.2)
Lymphocytes % 1.8 L %
(20.5-51.1)
Sodium 126 L mmol/L
(135-145)
Potassium 5.8 H mmol/L
(3.5-5.1)
Chloride 94 L mmol/L
(98-107)
BUN 46 H mg/dl
(9-20)
Creatinine 1.5 H mg/dL
(0.7-1.3)
Glucose 106 H mg/dl
(70-99)
Lactic Acid 4.4 H* mmol/L
(0.7-2.0)
Calcium 10.5 H mg/dl
(8.4-10.2)
Total Bilirubin 1.6 H mg/dl
(0.2-1.3)
AST 514 H* U/L
(17-59)
ALT 256 H U/L
(0-50)
Alkaline Phosphatase 1010 H U/L
(38-126)
Albumin 3.4 L g/dl
(3.5-5.0)
07/12/25 15:50
07/12/25 15:50
Vital Signs
Initial and Last Documented VS:
Initial Vital Signs
Temp Pulse Resp BP Pulse Ox
98.4 F 124 20 125/85 94
07/12/25 14:00 07/12/25 14:00 07/12/25 14:00 07/12/25 14:00 07/12/25 14:00
Last Documented Vital Signs
Temp Pulse Resp BP Pulse Ox
98.3 F 117 18 113/72 94
07/12/25 20:01 07/12/25 20:01 07/12/25 20:01 07/12/25 20:01 07/12/25 20:01
<Nani Aviles NP - Last Filed: 07/12/25 16:32>
*Radiology
Radiology exam reviewed: radiology read reviewed
*Pulse Oximetry
SaO2: 99
Nasal Cannula flow liters per minute: 4
Patient hypoxic: yes
*Critical Care Note
Total Time (30-74mins, 75-104mins- exclusive of procedures): Not Applicable
<Nani Aviles NP - Last Filed: 07/12/25 16:32>
Update Note
Update Note:
Patient sent from [facility] for evaluation of increasing shortness of breath, tachycardia. new diagnosis metastatic neuroendocrine cancer. He was scheduled for his second infusion of chemotherapy today.(First dose was given yesterday,
tolerated well). With this morning he reported some weakness but felt that he required tolerate the chemo today. According to report his heart rate was maintaining in the 120s. Pulse ox in the mid 80s on room air. He was seen in the emergency
department on 07 01 for increasing shortness of breath and was diagnosed with pneumonia at that time. He was placed on azithromycin and Augmentin and was able to be discharged home. Patient reports that he completed the course the antibiotic and
the issues. Chest x-ray today reveals an opacity in the right lower lobe that has increased in size. Pulse ox 95% 4L NC. WBC today is 19.5. NA today is 126, K5.8. Creatinine is stable at 1.5 AST elevated at 514 ALT is 256, alk phos 1010.
Cefepime and normal saline infusion initiated in department. He will be admitted to the hospitalist service. Discussed all findings with patient and spouse. He is agreeable to this admission.
ED Attending Note
<Nani Aviles NP - Last Filed: 07/12/25 16:32>
-
Portions of this chart may have been created with voice recognition software.� Occasional wrong word or��sound alike� substitutions may have occurred due to the inherent limitations of voice recognition software.
<Alex Mistry DO - Last Filed: 07/12/25 20:16>
ED Attending Note
Patient seen and examined by attending physician: Yes
I performed the substantive portion of visit, reviewed & personally made and approve the management plan that is documented in note by myself or NAKIA.: Yes
I performed a history and physical exam of patient and discussed management with resident, I reviewed resident's note and agree with documented findings and plan of care.: Yes
ED Attending Note:
60-year-old male referred to the ER for further evaluation of tachycardia and hypoxia. He does have a history of small cell lung cancer. He denies any complaints of pain. Vital signs reviewed, patient is awake, alert, cachectic, appears in no
acute distress, mucous membranes tacky, conjunctiva pale, no increased work of breathing, extremities without edema, GCS is 15. I reviewed all test results with nurse practitioner, patient and significant other present bedside. Patient is
initiated on treatment for pneumonia and admitted to the hospitalist for further care given hypoxia, tachycardia, and confounding current treatment of cancer.
Discharge Plan
Departure
Patient Disposition: Admit
Date of Disposition: 07/12/25
Time of Disposition: 16:18
Presentation/result/management discussed w/ accepting MD/DO: Hospitalist
Patient with high blood pressure during this ER visit?: No
Condition: Fair
Covid-19: Not Applicable
Discharge Problem:
Pneumonia
Interventions
Interventions:
*Risk Screen - Suicide Last Done: 07/12/25 14:30
*General Assessment Last Done: 07/12/25 14:30
*Neglect/Abuse Screening Last Done: 07/12/25 14:30
*ED- Fall Risk Assessment Last Done: 07/12/25 14:30
*ED COVID-19 Vaccine History Last Done: 07/12/25 14:30
*ED Influenza Vaccine History Last Done: 07/12/25 14:30
*Nursing Disposition Last Done: 07/12/25 19:30
ED- Cardiac Assessment Last Done: 07/12/25 15:01
ED- Pulmonary Assessment Last Done: 07/12/25 16:10
Discharge Date and Time
Discharge Date/Time: 07/12/25 19:30
[2025-07-12 15:00] VITALS: BP 119/81
[2025-07-12 15:57] LABS: Hematocrit 38.3 % (39.0-52.0); Hemoglobin 13.4 g/dL (13.0-18.0); Mean Corp Hgb Conc. 35.0 g/dL (33.0-37.0); Mean Corpuscular Volume 93.6 fL (80.0-94.0); Nucleated Red Blood Cells % 0 % (-); Platelet Count 239 10^3/uL (130-400); Red Cell Dist. Width 15.5 % (11.5-14.5)
[2025-07-12 16:00] VITALS: BP 119/97
[2025-07-12 16:17] LABS: ALT (SGPT) 256 U/L (0-50); AST (SGOT) 514 U/L (17-59); Albumin 3.4 g/dl (3.5-5.0); Alkaline Phosphatase 1010 U/L (38-126); Blood Urea Nitrogen 46 mg/dl (9-20); Calcium 10.5 mg/dl (8.4-10.2); Carbon Dioxide 29 mmol/L (22-30); Chloride 94 mmol/L (98-107); Estimated Creatinine Clearance 56 ml/min; Glucose 106 mg/dl (70-99); Potassium 5.8 mmol/L (3.5-5.1); Sodium 126 mmol/L (135-145); Total Protein 6.9 g/dl (6.3-8.2); eGFR 52.31
[2025-07-12] MEDS: MAXIPIME 2000 MG IV (16:21)
[2025-07-12] MEDS: NSS 500 IV (16:32)
--- NOTE | 2025-07-12 16:55 | HPS.HSE ---
Family Physician
-
Family Physician: KACI MEDINA, DO
Chief Complaint
-
sob, weak
History of Present Illness
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
and elevated heart rate. He was diagnosed with metastatic neuroendocrine cancer in May and has been following with [facility]. He had his first chemo infusion yesterday, and was scheduled for his next infusion today. today morning
he felt weak and was having trouble walking to the bathroom. upon arrival at the cancer center staff noticed his elevated heart rate and increasing shortness of breath. patient stated occasional cough with reflux.denied fever, chills, chest pain.
denied SWANSON, dizzy or syncope. denied abdominal pain,n,v,d. denied dysuria or hematuria. patient stated worsening swelling of abdomen, LE edema, scrotum and penis. Patient and sis n law stated that he tolerated the chemotherapy yesterday and felt
well until this a.m.
upon arrival, he is requiring 4l oxygen and chest x ray with pneumonia. Patient received a dose of cefepime in ER. Admitted for further management
Medical History
Past Medical History
Past Medical History: Reports Other
Additional Past Medical History:
Metastatic neuroendocrine tumor
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
Anxiety
Past Surgical History: Reports None
Social History
Tobacco: Non-smoker
Alcohol: None
Drug: None
Personal: Single
Living: With Family
Family History
Family History: Not pertinent
Allergies / Home Medications
Allergies reflects when Allergies were last updated in [facility].
Home Medications with original date entered in [facility]
Allergy/Medication List:
Allergies
Allergy/AdvReac Type Severity Reaction Status Date / Time
No Known Allergies Allergy Verified 07/12/25 14:04
Home Medications
alprazolam 3 mg tablet,extended release 24 hr 3 mg PO HS Mental Health/Anxiety 06/15/25
bupropion HCl 200 mg tablet,12 hr sustained-release 200 mg PO BID Mental Health/Anxiety 06/15/25
fluvoxamine 100 mg tablet 100 mg PO HS Mental Health/Anxiety 06/15/25
fluvoxamine 100 mg tablet 150 mg PO DAILY Mental Health/Anxiety 06/15/25
apixaban 5 mg tablet (Eliquis) 5 mg PO BID Blood Clot Prevention/Tx 07/01/25
docusate sodium 100 mg capsule (Colace) 100 mg PO DAILY@1300 Constipation 07/12/25
hydromorphone 4 mg tablet (Dilaudid) 2 mg PO Q4H 07/12/25
ondansetron 4 mg disintegrating tablet 4 mg PO Q8HPRN PRN nausea and vomiting 07/12/25
polyethylene glycol 3350 17 gram oral powder packet (Miralax) 17 g PO DAILYPRN PRN constipation 07/12/25
Review of Systems
-
Constitutional: Reports Fatigue
EENT: Reports No Symptoms
Respiratory: Reports Cough and Trouble Breathing
Cardiac: Reports No Symptoms
Abdomen/GI: Reports No Symptoms
: Reports No Symptoms
Musculoskeletal: Reports No Symptoms
Skin: Reports No Symptoms
Neurological: Reports Weakness
Endocrine: Reports No Symptoms
Hematologic/Lymphatic: Reports No Symptoms
Psych: Reports No Symptoms
Physical Exam
Vital Signs
Vital Signs
Temp Pulse Resp BP Pulse Ox
98.4 F 128 20 119/97 94
07/12/25 14:00 07/12/25 16:00 07/12/25 16:00 07/12/25 16:00 07/12/25 16:00
Physical Exam
General: Well Developed, Well Nourished and No Apparent Distress
HEENT: NormoCephalic, Moist mucous membranes and Atraumatic
Respiratory: Clear
Cardiac: S1/S2, Regular Rhythm and Peripheral Edema; No Murmur or Rub
GI: Soft, Normal Bowel Sounds and Distended; No Organomegaly
Rectal: Deferred by Provider
Musculoskeletal: No Clubbing, No Cyanosis and Other (Bilateral lower extremities edema)
Skin: No Rash
Neuro: AO x 3 and Nonfocal/grossly intact
Psych: Calm
Laboratory Results
-
07/12/25 15:50
07/12/25 15:50
Laboratory Results
Total Bilirubin 1.6 mg/dl (0.2-1.3) H 07/12/25 15:50
AST 514 U/L (17-59) H* 07/12/25 15:50
ALT 256 U/L (0-50) H 07/12/25 15:50
Alkaline Phosphatase 1010 U/L (38-126) H 07/12/25 15:50
Data Reviewed
-
Diagnostic Radiology: Report Reviewed by me
Lab Data: Labs Reviewed by me
Impression/Plan
-
# Sepsis secondary to right lower lobe pneumonia/CAP
#acute hypoxic respiratory failure secondary to pneumonia
## Immunocompromised state in setting of metastatic neuroendocrine cancer and on active chemotherapy
# Worsening chronic transaminitis may be due to sepsis versus effect of chemo versus underlying cancer
- Sepsis as evident by WBCs 19.5, creatinine 1.5, T. bili 1.6
- Chest x-ray with impression Increasing parenchymal airspace opacity within the right lower lung, highly suspicious for pneumonia. Small right pleural effusion, slightly increased since previous radiograph.
- Check blood cultures, MRSA screen, COVID and flu
- IV cefepime continued
-continue supplemental oxygen to keep sat>95, wean as tolerated
- ID consulted
# Acute hyponatremia likely related to pneumonia/SIADH
# CKD stage III yeah secondary to metastatic renal disease
# Mild hypercalcemia due to mild dehydration
- Sodium 126, K5.8 creatinine 1.5
- Check urine osmolality, urine sodium
- received Normal saline 500 cc
- Continue to monitor sodium level
#abdominal distention/LE edema concern for ascites
-IR consulted for paracentesis.
#Transaminitis likely from metastatic disease
- AST 514, ALT 256, 1010
# # metastatic neuroendocrine cancer
# R renal cell carcinoma
# Right adrenal metastasis.
# Large retrocrural and mediastinal emily metastases.
# Hepatic metastatic disease
# tumor thrombus in the IVC and right common iliac vein-Eliquis continued
-Started chemo and immunotherapy yesterday
-Dilaudid continued
-Onc CS
#Anxiety d/o
-Alprazolam, bupropion, fluvoxamine continued
DVT ppx Eliquis
full code
--- NOTE | 2025-07-12 17:58 | W.PN.UPDATE ---
Update Note
Progress Note Update
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
He also c/o mild cough and worsening BL LE and abdomen swelling.
He was diagnosed with metastatic neuroendocrine cancer in May and has been following with [facility]. He had his first chemo infusion the day [employer] and was scheduled for his next infusion on DOA.
Chest x-ray:
Increasing parenchymal airspace opacity within the right lower lung, highly suspicious for pneumonia. Small right pleural effusion, slightly increased since previous radiograph.
A/P:
# Sepsis POA secondary to right lower lobe pneumonia/CAP
# acute hypoxic respiratory failure secondary to pneumonia
# Immunocompromised state in setting of metastatic neuroendocrine cancer and on active chemotherapy
# Worsening chronic transaminitis may be due to sepsis versus effect of chemo versus underlying cancer
Check blood cultures, MRSA screen, COVID and flu
Cont IV cefepime
continue O2 support at 4L NC, wean as tolerated, pt not on home O2
ID consult
Monitor LFT
# Acute on chronic hyponatremia, acute component likely related to pneumonia/SIADH
Check urine osmolality, urine sodium
He received 500 cc NSS in ED
Monitor SCr
# CKD stage III
creatinine 1.5
# Hyperkalemia
K level 5.8
EKG without peaked T wave
Kayexalate x1
# abdominal distention
# Worsening BL LE edema
IR consulted for paracentesis.
# metastatic neuroendocrine cancer
# R renal cell carcinoma
# Right adrenal metastasis.
# Large retrocrural and mediastinal emily metastases.
# Hepatic metastatic disease
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
cont [employer] Eliquis
pain control with IV Dilaudid per pt request, cont bowel regimen
Onc CS
# Anxiety d/o
cont [employer] Alprazolam, bupropion, fluvoxamine
DVT ppx Eliquis
full code
DW at bedside
[2025-07-12] MEDS: KAYEXALATE SUSPENSION 15 GRAMS PO (18:32)
[2025-07-12 19:00] VITALS: BP 105/73
[2025-07-12 19:16] LABS: COVID-19 Antigen Negative (Negative)
[2025-07-12 19:34] VITALS: BMI 26.4
[2025-07-12 20:01] VITALS: BP 113/72
--- NOTE | 2025-07-12 20:01 | PTCARENOTE ---
Pt arrived onto floor via stretcher. Pt AAOx3 and able to walk into room with minimal assistance. Pt with no complaints of pain at this time. Pt oriented to room and call hussein; will continue to monitor.
[2025-07-12] MEDS: ELIQUIS 5 MG PO (21:17)
[2025-07-12] MEDS: MILK OF MAGNESIA 30 ML PO (21:17)
[2025-07-12] MEDS: WELLBUTRIN SR (12 hour sustained release) 200 MG PO (21:17)
[2025-07-12] MEDS: XANAX 1.5 MG PO (21:17)
[2025-07-12] MEDS: LUVOX 100 MG PO (21:19)
[2025-07-12] MEDS: MAXIPIME 1000 MG IV (23:34)
[2025-07-12] MEDS: STERILE WATER FOR INJECTION 10 ML IV (23:35)
[2025-07-13] VITALS (7 sets, daily range): BP systolic 119–130; BP diastolic 65–85
[2025-07-13] MEDS: ZOFRAN ODT (ORALLY DISINTEGRATING) 4 MG PO (00:52)
[2025-07-13] MEDS: DILAUDID 0.25 MG IV ×3 (04:30→21:43)
[2025-07-13 05:37] LABS: Hematocrit 37.2 % (39.0-52.0); Hemoglobin 12.5 g/dL (13.0-18.0); Mean Corp Hgb Conc. 33.6 g/dL (33.0-37.0); Mean Corpuscular Volume 96.9 fL (80.0-94.0); Platelet Count 200 10^3/uL (130-400); Red Cell Dist. Width 16.0 % (11.5-14.5)
[2025-07-13 06:00] LABS: ALT (SGPT) 263 U/L (0-50); AST (SGOT) 542 U/L (17-59); Albumin 3.1 g/dl (3.5-5.0); Alkaline Phosphatase 856 U/L (38-126); Blood Urea Nitrogen 54 mg/dl (9-20); Calcium 9.9 mg/dl (8.4-10.2); Carbon Dioxide 28 mmol/L (22-30); Chloride 94 mmol/L (98-107); Estimated Creatinine Clearance 56 ml/min; Glucose 88 mg/dl (70-99); Potassium 5.6 mmol/L (3.5-5.1); Sodium 124 mmol/L (135-145); Total Protein 6.6 g/dl (6.3-8.2); eGFR 52.31
--- NOTE | 2025-07-13 08:02 | W.PN.HOSP.TC ---
Addendum entered and electronically signed by Jigna Cote MD 07/13/25 09:49:
add Maalox and IV Pepcid for abd bloating and reflux symptoms
Original Note:
Today's Communication/Plan
-
see A/P
Assessment / Plan
Assessment / Plan
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
He also c/o mild cough and worsening BL LE and abdomen swelling.
He was diagnosed with metastatic neuroendocrine cancer in May and has been following with [facility]. He had his first chemo infusion the day [employer] and was scheduled for his next infusion on DOA.
Chest x-ray:
Increasing parenchymal airspace opacity within the right lower lung, highly suspicious for pneumonia. Small right pleural effusion, slightly increased since previous radiograph.
A/P:
# Sepsis POA secondary to right lower lobe pneumonia/CAP
# acute hypoxic respiratory failure secondary to pneumonia
# Immunocompromised state in setting of metastatic neuroendocrine cancer and on active chemotherapy
# Worsening chronic transaminitis may be due to sepsis versus effect of chemo versus underlying cancer
# Lactic acidosis POA due to sepsis vs active cancer vs chemo effect
s/p 500 cc in ED, cont gentle IVF 500 cc only (avoid excess IVF in setting of significant edema)
Follow blood cultures, MRSA screen, COVID/flu negative
Cont IV cefepime
continue O2 support at 4L NC, wean as tolerated, pt not on home O2
ID consult
Monitor LFT , lactate
# Acute on chronic hyponatremia, acute component ?related to pneumonia/SIADH vs dehydration
urine sodium very low suggestive of dehydration
He received 500 cc NSS in ED
cont gentle IVF 500 cc only (avoid excess IVF in setting of significant edema)
Monitor SCr , Sodium level
# CKD stage III
creatinine 1.5
# Hyperkalemia
K level 5.8
EKG without peaked T wave
s/p Kayexalate x1
Monitor K level
# abdominal distention
# Worsening BL LE edema
Not enough abdominal fluid for paracentesis, hence abd distension likely due to cancer
# metastatic neuroendocrine cancer
# R renal cell carcinoma
# Right adrenal metastasis.
# Large retrocrural and mediastinal emily metastases.
# Hepatic metastatic disease
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
cont [employer] Eliquis
pain control with IV Dilaudid per pt request, cont bowel regimen while on opiate
Onc CS
# Anxiety d/o
cont [employer] Alprazolam, bupropion, fluvoxamine
DVT ppx Eliquis
full code
Anticipated Discharge: > 48 hours
Subjective/Interval History
-
Date of Service: July 13, 2025
Objective Data
-
Labs:
Laboratory Results
07/13/25
05:13
WBC 14.0 H
Hgb 12.5 L
Hct 37.2 L
Plt Count 200
Sodium 124 L
Potassium 5.6 H
Chloride 94 L
Carbon Dioxide 28
BUN 54 H
Creatinine 1.5 H
Glucose 88
Calcium 9.9
Total Bilirubin 1.5 H
AST 542 H*
ALT 263 H
Alkaline Phosphatase 856 H
Vital Signs:
Vital Signs
Temp Pulse Resp BP Pulse Ox
36.6 C 91 18 120/68 97
07/13/25 03:35 07/13/25 03:35 07/13/25 03:35 07/13/25 03:35 07/13/25 03:35
I&O
07/12/25 07/13/25 07/14/25
06:59 06:59 06:59
Intake Total 240 / 240
Balance 240 / 240
Review of Systems
-
History Source: Patient
All other systems: Reviewed and negative
Physical Exam
-
General: Well Developed, Comfortable, Respiratory Distress and Appears Chronically Ill
HEENT: Normocephalic, Atraumatic and Oxygen (4L NC)
Respiratory: Clear to Auscultation and Non Labored Respirations; Negative Accessory Resp Muscle Use
Cardiac: Regular Rhythm and S1/S2
GI: Nontender and Distended
Musculoskeletal: Edema, Right Lower Extrem and Edema, Left Lower Extrem
Skin: Warm and Dry
Neuro: Awake and Alert
Psych: Calm and Intact Judgement/Insight
Data Reviewed
-
Diagnostic Radiology: Image personally visualized and interpreted and Report Reviewed by me
Labs: Labs Reviewed by me
[2025-07-13] MEDS: ELIQUIS 5 MG PO ×2 (08:49→21:42)
[2025-07-13] MEDS: LUVOX 150 MG PO (08:49)
[2025-07-13] MEDS: MILK OF MAGNESIA 30 ML PO ×4 (08:49→21:42)
[2025-07-13] MEDS: WELLBUTRIN SR (12 hour sustained release) 200 MG PO ×2 (08:49→21:42)
[2025-07-13] MEDS: MAXIPIME 1000 MG IV ×2 (08:50→16:01)
[2025-07-13] MEDS: XANAX 1.5 MG PO ×2 (08:50→21:42)
[2025-07-13] MEDS: STERILE WATER FOR INJECTION 10 ML IV ×2 (08:50→16:01)
[2025-07-13] MEDS: NSS 500 IV (08:51)
[2025-07-13] MEDS: PEPCID 20 MG IV (10:55)
[2025-07-13] MEDS: NSS (PRESERVATIVE FREE) 8 ML IV (10:55)
[2025-07-13] MEDS: MAALOX 30 ML PO (10:55)
--- NOTE | 2025-07-13 10:59 | CON.ID ---
Consultation
-
Date/Time Consultation Requested: July 12, 2025 1702
Date/Time Consultation Performed: July 13, 2025 1100
Requesting Provider: Dr. Sandie Cote
Performing Provider: Dr. Lara Marcelino
Reason for Consultation: Pneumonia
Chief Complaint / Past History
Chief Complaint
Weakness and shortness of breath
History of Present Illness
60-year-old male with recent diagnosis of metastatic poorly differentiated neuroendocrine carcinoma, IVC/iliac vein thrombus, started chemotherapy 07/11/25 who presented from outpatient infusion center to the hospital 07/12/2025 due to tachycardia
and hypoxia. Patient reports he was doing well after first 4-hour chemo-infusion on Thursday. The next day, he felt weak and short of breath. Mild cough. No fevers or chills. He has chronic lower extremity edema but noted increase
scrotal,penile, leg swelling. No headaches. No rhinorrhea or sinus congestion. No sore throat. No mouth sores. No chest pain. No nausea vomiting. Is constipated. Noted increase abdominal girth. When he presented to infusion center the next
day, patient noted to be tachycardic, O2 saturation in the 70s and therefore he was sent to the ER. In ER afebrile, white count 19.5, lactic acid 4.4. Elevated LFTs due to hepatic mets slightly worse. COVID and flu negative. Chest x-ray showed
right lower lobe opacity. He is currently on cefepime. No ill contacts. 1 dog at home. He reports burping when he eats/drinks, then cough.
Past History
Additional Past Medical History:
Poorly differentiated neuroendocrine carcinoma dx'ed 05/2025 with extensive mets to R kidney, liver, retroperitoneal/mediastinal lymph nodes, right adrenal, chemo started 07/11/25
IVC, right common iliac vein tumor thrombus
CKD3
Port placement 07/03/2025
Anxiety
Allergy History:
No Known Allergies Allergy (Verified 07/12/25 14:04)
Medications Reviewed: Yes
Current Antibiotics:
Cefepime
Social History
Tobacco: Non-Smoker
Alcohol: None
Drug: None
Personal: Single
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
Family History
Family History: Adopted
Review of Systems
Review of Systems
General: Change in Appetite; Negative Fever
HEENT: Negative Sinus Problems, Headache or Pharyngitis
Cardiovascular: Dyspnea and Edema; Negative Chest Pain
Respiratory: Dyspnea; Negative Sputum Production
Genital / Urological: Negative Dysuria or Flank Pain
Endocrine: Weakness
All systems: All other systems were reviewed and were negative
Vital Signs
Temp Pulse Resp BP Pulse Ox
98.0 F 85 17 124/65 95
07/13/25 08:12 07/13/25 08:12 07/13/25 08:12 07/13/25 08:12 07/13/25 08:12
Physical Exam
Physical Exam
Constitutional: Acutely Ill
Head: Other (No sinus tenderness. )
Eyes: No Conjunctival Hemorrhage and Sclera Anicteric
Pharynx: Benign
Cardiovascular: Regular Rate and S1/S2
Pulmonary: Rales (Crackles right base)
Gastrointestinal: Soft, Non Tender and Distended
Genito-Urinary: Negative CVA Tenderness
Extremities: Edema (BLE)
Musculoskeletal: Negative Spinal Tenderness
Skin: Negative Rash
Neurological: AO x 3
Lines: Port (RCW no erythema)
Lab / Diagnostic Study Results
07/13/25 05:13
07/13/25 05:13
Abs Immat Gran (auto) 0.1 10^3/uL (0-0.05) H 07/12/25 15:50
Absolute Neuts (auto) 18.5 10^3/uL (1.4-6.5) H 07/12/25 15:50
Absolute Lymphs (auto) 0.4 10^3/uL (1.2-3.4) L 07/12/25 15:50
Absolute Monos (auto) 0.5 10^3/uL (0.1-0.6) 07/12/25 15:50
Absolute Basos (auto) 0.0 10^3/uL (0-0.2) 07/12/25 15:50
Immature Gran % 0.6 % (0-0.5) H 07/12/25 15:50
Neutrophils % 94.8 % (42.2-75.2) H 07/12/25 15:50
Lymphocytes % 1.8 % (20.5-51.1) L 07/12/25 15:50
Monocytes % 2.6 % (1.7-9.3) 07/12/25 15:50
Eosinophils % 0.0 % (0-6) 07/12/25 15:50
Basophils % 0.2 % (0-2) 07/12/25 15:50
Lactic Acid 4.2 mmol/L (0.7-2.0) H* 07/13/25 00:20
Microbiology Results
Micro:
07/13/25 04:24 Legionella Urinary Antigen - Final
Urine Negative for Legionella pneumophila Serogroup 1 antigen.
A negative result does not rule out the possiblity of
Legionella infection due to other serogroups or species of
Legionella. Clinical correlation is recommended.
Streptococcus pneumoniae Antigen (M - Final
Negative for Streptococcus pneumoniae antigen.
A negative result does not exclude infection with
Streptococcus pneumoniae. Clinical correlation is
recommended.
07/13/25 07:26 Blood Culture - Pending
Blood/Venous
07/13/25 00:20 Blood Culture - Pending
Blood/Venous
07/12/25 23:49 MRSA Screen - Pending
Nose
07/12/25 18:33 Influenza Types A & B (ALFA) - Final
Nasal Swab Negative for Influenza A & B, NAAT
Negative results must be combined with clinical observations
and patient history.
Nucleic Acid Amplification test (NAAT)performed on the
[employer] platform.
07/12/25 CXR: Increasing parenchymal airspace opacity within the right lower lung, highly suspicious for pneumonia. Small right pleural effusion, slightly increased since previous radiograph.
07/13/25 ABD US: No ascites appreciated therefore unable to perform paracentesis.
Assessment / Plan
# Probable RLL pneumonia
# Acute hypoxemic respiratory insufficiency
# Leukocytosis
# Poorly differentiated neuroendocrine carcinoma dx'ed 05/2025 with extensive mets to R renal,liver, retroperitoneal/mediastinal lymph nodes, right adrenal; 1st chemo on 07/11/25
# IVC, right common iliac vein tumor thrombus
# Edema
# CKD3
- Abd US - no ascites, paracentesis cancelled
- Blood cx's pending
- Continue cefepime
- Add azithromycin.
- Monitor wbc, oxygen status.
--- NOTE | 2025-07-13 11:00 | PTOTSP ---
Speech Therapy Evaluation:
Pt with acute/subacute risk factors for dysphagia including recent dx of metastatic neuroendocrine carcinoma and current admission for weakness/SOB. At bedside, oral phase mildly prolonged 2/2 xerostomia. No overt s/sx of aspiration across trials.
Cannot r/o pharyngeal component with CXR showing RLL pneumonia (? CAP per chart). Pt also reported new onset of indigestion/reflux, question esophageal component.
Recommend:
1. Regular solids and thin liquids
2. Meds as tolerated
3. General aspiration and reflux precautions
4. Added moisture
5. TEACHER ASSOCIATE to follow to monitor tolerance of diet and determine if pt would benefit from instrumental assessment.
--- NOTE | 2025-07-13 11:02 | CON.ONC ---
Consultation
-
Date Consultation Requested: 07/12/25
Date Consultation Performed: 07/13/25
Requesting Provider: Jigna Cote MD
Performing Provider: Zaheer Kendall DO; So, Alma Bond MD
Reason for Consultation: Metastatic Neuroendocrine Carcinoma
Impression
Impression
Metastatic Neuroendocrine Carcinoma- primary unknown
Respiratory distress secondary to abdominal distention and possible PNA
Generalized Weakness
Chronic Transaminitis
Lactic acidosis
Macrocytic Anemia
Hyperkalemia
Hypervolemic Hyponatremia likely secondary to liver pathology d/t metastasis
CKD Stage 3a
Plan
Plan
-Advanced high burden of metastatic neuroendocrine cancer with declining functional status may preclude systemic therapy.
-Ordered LDH and uric acid to rule out Tumor Lysis syndrome
-Continue to monitor the hypervolemic hyponatremia. May need Nephrology consult.
-Increasing parenchymal airspace opacity within the right lower lung suspicious pneumonia currently being managed with antibiotics
Patient History
History of Present Illness
Mr. Campbell is a 60 year old male recently diagnosed with metastatic poorly differentiated neuroendocrine carcinoma, follows Dr. Kendall, presenting with progressive shortness of breath and generalized weakness.
Four months ago, he developed intermittent inguinal pain radiating to the hypogastrium and back, associated with constipation. Two months ago, he was admitted for abdominal pain, distention, and >20 lb weight loss. Imaging revealed a 12 cm right
renal mass with extensive metastatic disease, including right renal vein and near-complete IVC involvement with tumor thrombus, severe retroperitoneal, retrocrural, and mediastinal lymphadenopathy, hepatic metastases replacing >75% of liver
parenchyma, and right adrenal metastasis. Biopsy confirmed metastatic poorly differentiated neuroendocrine carcinoma.
In the interim, he reports worsening fatigue, weakness, abdominal distention, and intermittent vomiting. He received his first cycle of carboplatin and etoposide last Thursday. Scheduled for a second cycle the next day, but he developed worsening
shortness of breath and profound weakness resulting in inability to ambulate, thus prompting ER presentation.
CBC: WBC 14, Hgb 12.5, Platelet 200. Potassium 5.6, BUN 54, Creatinine 1.5, Lactic Acid 4.4, Elevated LFT
Chest X ray: Increasing parenchymal airspace opacity within the right lower lung, highly suspicious for pneumonia. Small right pleural effusion
Past-Medical/Surgical History
Anxiety
Patient Medication
�Medication �Instructions �Recorded �Confirmed �Last Taken �Type
alprazolam 3 mg tablet,extended 3 mg PO HS Mental Health/Anxiety 06/15/25 07/12/25 07/11/25 History
release 24 hr
bupropion HCl 200 mg tablet,12 hr 200 mg PO BID Mental Health/Anxiety 06/15/25 07/12/25 07/12/25 History
sustained-release
fluvoxamine 100 mg tablet 100 mg PO HS Mental Health/Anxiety 06/15/25 07/12/25 07/11/25 History
fluvoxamine 100 mg tablet 150 mg PO DAILY Mental 06/15/25 07/12/25 07/12/25 History
Health/Anxiety
apixaban 5 mg tablet (Eliquis) 5 mg PO BID Blood Clot 07/01/25 07/12/25 07/12/25 History
Prevention/Tx
docusate sodium 100 mg capsule 100 mg PO DAILY@1300 Constipation 07/12/25 07/12/25 07/12/25 History
(Colace)
hydromorphone 4 mg tablet 2 mg PO Q4H Pain 07/12/25 07/12/25 07/12/25 13:00 History
(Dilaudid)
ondansetron 4 mg disintegrating 4 mg PO Q8HPRN PRN nausea and 07/12/25 07/12/25 Unknown History
tablet vomiting
polyethylene glycol 3350 17 gram 17 g PO DAILYPRN PRN constipation 07/12/25 07/12/25 Unknown History
oral powder packet (Miralax)
Active Medications
Generic Name Dose Route Start Last Admin
Trade Name Freq PRN Reason Stop Dose Admin
Al Hydrox/Mg Hydrox/Simethicone 30 ml 07/13/25 15:00
Mag/Al/Simethicone Suspension 30 Ml Cup PO 08/10/25 14:59
QIDPRN PRN
dyspepsia
Alprazolam 1.5 mg 07/12/25 20:00 07/13/25 08:50
Alprazolam 0.5 Mg Tablet PO 08/09/25 19:59 1.5 mg
BID VIOLA Administration
Apixaban 5 mg 07/12/25 20:00 07/13/25 08:49
Apixaban (Eliquis) 5 Mg Tablet PO 08/09/25 19:59 5 mg
BID VIOLA Administration
Bupropion HCl 200 mg 07/12/25 20:00 07/13/25 08:49
Bupropion (12hr) Sustained Release 100 Mg Tablet PO 08/09/25 19:59 200 mg
BID VIOLA Administration
Cefepime HCl 1,000 mg 07/13/25 00:00 07/13/25 08:50
Cefepime Hcl 1,000 Mg/11.3 Ml Vial IV 1,000 mg
Q8H VIOLA Administration
Docusate Sodium 100 mg 07/13/25 13:00
Docusate Sodium 100 Mg Capsule PO 08/10/25 12:59
DAILY@1300 VIOLA
Famotidine 20 mg 07/13/25 10:00
Famotidine 20 Mg/2 Ml Vial IV 08/10/25 09:59
DAILY VIOLA
Fluvoxamine Maleate 100 mg 07/12/25 22:00 07/12/25 21:19
Fluvoxamine 50 Mg Tablet PO 08/09/25 21:59 100 mg
HS VIOLA Administration
Fluvoxamine Maleate 150 mg 07/13/25 08:00 07/13/25 08:49
Fluvoxamine 50 Mg Tablet PO 08/10/25 07:59 150 mg
DAILY VIOLA Administration
Heparin Sodium (Porcine) 500 unit 07/12/25 16:45 07/13/25 04:30
Heparin Flush Pf (100 Unit/Ml) 5 Ml Syringe IV 08/09/25 16:44 500 unit
PER PROTOCOL VIOLA Administration
Hydromorphone HCl 0.25 mg 07/12/25 19:31 07/13/25 09:11
Hydromorphone 0.25 Mg/0.5 Ml Syringe IV 07/26/25 19:30 0.25 mg
Q4HPRN PRN Administration
severe pain
Sodium Chloride 500 mls @ 60 mls/hr 07/13/25 08:00 07/13/25 08:51
Nss IV 07/13/25 16:19 500 mls
.Q8H20M VIOLA Administration
Magnesium Hydroxide 30 ml 07/12/25 22:00 07/13/25 08:49
Milk Of Magnesia 30 Ml Cup PO 08/09/25 21:59 30 ml
QID VIOLA Administration
Ondansetron HCl 4 mg 07/12/25 19:31 07/13/25 00:52
Ondansetron 4 Mg (Orally-Disintegrating) Tablet PO 08/09/25 19:30 4 mg
Q8HPRN PRN Administration
nausea and vomiting
Polyethylene Glycol 17 grams 07/12/25 19:31
Polyethylene Glycol Powder 17 Grams Packet PO 08/09/25 19:30
DAILYPRN PRN
constipation
Sodium Chloride 0 flush 07/13/25 08:00
Sodium Chloride 0.9% (Flush) Syringe IV 08/10/25 07:59
PER PROTOCOL VIOLA
Sodium Chloride 8 ml 07/13/25 10:00
Nss 8 Ml Qhs IV 08/10/25 09:59
DAILY VIOLA
Sterile Water 10 ml 07/13/25 00:00 07/13/25 08:50
Sterile Water For Injection 10 Ml Vial IV 08/10/25 00:00 10 ml
Q8H VIOLA Administration
Review of Systems
-
History Source: Patient
Constitutional: Reports Weight Loss, No Appetite and Weakness; Denies Fever
EENT: Reports No Symptoms
Respiratory: Reports Trouble Breathing; Denies Cough
Cardiac: Denies Chest Pain or Palpitations
GI: Reports Abdominal Pain, Constipated (Chronic) and Other (Abdominal distention)
: Reports Flank Pain; Denies Dysuria or Incontinence
Musculoskeletal: Reports Edema
Neuro: Denies Headache or Numbness
Psych: Reports No Symptoms
Physical Exam
-
General: Conversant and Appears Chronically Ill
Cardiology: Normal Sinus Rhythm, S1 and S2
Pulmonary: Clear
GI: Soft, Normal Bowel Sounds, Distended and Other (Firm abdomen upon palpation)
Musculoskeletal: Edema, Right Lower Extrem (+2) and Edema, Left Lower Extrem (+2)
Extremities: Pulses Present
Skin: Warm and IV Access / Catheter Site
Psych: Calm
Labs
Lab Results
WBC 14.0 10^3/uL (4.8-10.8) H 07/13/25 05:13
RBC 3.84 10^6/uL (4.70-6.10) L 07/13/25 05:13
Hgb 12.5 g/dL (13.0-18.0) L 07/13/25 05:13
Hct 37.2 % (39.0-52.0) L 07/13/25 05:13
MCV 96.9 fL (80.0-94.0) H 07/13/25 05:13
MCH 32.6 pg (27.0-31.0) H 07/13/25 05:13
MCHC 33.6 g/dL (33.0-37.0) 07/13/25 05:13
RDW 16.0 % (11.5-14.5) H 07/13/25 05:13
Plt Count 200 10^3/uL (130-400) 07/13/25 05:13
MPV 10.7 fL (7.4-10.4) H 07/13/25 05:13
Abs Immat Gran (auto) 0.1 10^3/uL (0-0.05) H 07/12/25 15:50
Absolute Neuts (auto) 18.5 10^3/uL (1.4-6.5) H 07/12/25 15:50
Absolute Lymphs (auto) 0.4 10^3/uL (1.2-3.4) L 07/12/25 15:50
Absolute Monos (auto) 0.5 10^3/uL (0.1-0.6) 07/12/25 15:50
Absolute Eos (auto) 0.0 10^3/uL (0-0.7) 07/12/25 15:50
Absolute Basos (auto) 0.0 10^3/uL (0-0.2) 07/12/25 15:50
Immature Gran % 0.6 % (0-0.5) H 07/12/25 15:50
Neutrophils % 94.8 % (42.2-75.2) H 07/12/25 15:50
Lymphocytes % 1.8 % (20.5-51.1) L 07/12/25 15:50
Monocytes % 2.6 % (1.7-9.3) 07/12/25 15:50
Eosinophils % 0.0 % (0-6) 07/12/25 15:50
Basophils % 0.2 % (0-2) 07/12/25 15:50
Creatinine 1.5 mg/dL (0.7-1.3) H 07/13/25 05:13
Vital Signs
Vital Signs
Temp Pulse Resp BP Pulse Ox
98.0 F 85 17 124/65 95
07/13/25 08:12 07/13/25 08:12 07/13/25 08:12 07/13/25 08:12 07/13/25 08:12
--- NOTE | 2025-07-13 13:32 | CM ---
Initial assessment completed. Patient is a 60-year-old with past medical history for metastatic neuroendocrine carcinoma mets to hepatic, right adrenal, thrombus in the IVC and right common iliac vein presented as from emergency department by
[facility] for shortness of breath and elevated heart rate.
Patient resides alone in a single story home, 1 step to enter. Patient is independent in all areas, no DME or walking devices. No SNF/HC hx. Patient is seen at the [facility].
Address, point of contact and insurance verified
PCP: Courtney Monet
[facility]
Therapy assessed, recommending home health for PT at d/c. Patient has plans to d/c to brother's home
Plan: Home w/ home health
[2025-07-13] MEDS: ZITHROMAX 500 MG PO (14:07)
[2025-07-13] MEDS: COLACE 100 MG PO (14:07)
[2025-07-13 14:33] LABS: Uric Acid 9.7 mg/dl (3.5-8.5)
[2025-07-13 16:28] LABS: LDH 8632 U/L (120-246)
[2025-07-13 20:13] LABS: Glucose - Point of Care 141 mg/dl (70-99)
--- NOTE | 2025-07-13 20:31 | W.PN.UPDATE ---
Update Note
Progress Note Update
RN reports patient had a fall. Patient seen and evaluated. AAOx3, states he was sitting in the toilet and while trying to get up, his eye glass fell on the floor, he leaned forward to pick glasses up and fell forward hitting head. Denies loosing
consciousness. Denies headache, dizziness, nausea. Denies chest pain palpitations. Able to follow commands. Lungs clear, + BS 4 quad. GCS 15. NIHS 0, small cut noted on top of the head, cleaned and bandage place, some redness at back of the elbow
and forearm. No other cuts, bruises or bleeding noted. On Eliquis
CT scan head now
Neuro checks
126/85 96 95% 4L 18 97.5 BS 141
Advised fall precautions.
--- NOTE | 2025-07-13 20:45 | FALL ---
Description of Fall:
Pt found on the floor after cord was pulled in bathroom. Pt reports he fell forward reaching for his glasses, after the glasses slid off head. Pt denies LOC.
Injuries Noted:
Pt with laceration noted on head, abrasion on L forearm
Action Taken:
STAT Head CT ordered (no acute), q4hr neuro checks, bed alarm placed, education about fall prevention
Name of Provider Notified: Blayne Kent NP
[2025-07-13] MEDS: LUVOX 100 MG PO (21:42)
[2025-07-14] VITALS (7 sets, daily range): BP systolic 108–127; BP diastolic 71–83; PULSE 88–90
[2025-07-14] MEDS: MAXIPIME 1000 MG IV (00:47)
[2025-07-14] MEDS: STERILE WATER FOR INJECTION 10 ML IV ×4 (00:47→23:19)
[2025-07-14] MEDS: MAALOX 30 ML PO ×2 (01:47→20:09)
[2025-07-14 05:01] LABS: Hematocrit 33.7 % (39.0-52.0); Hemoglobin 12.0 g/dL (13.0-18.0); Mean Corp Hgb Conc. 35.6 g/dL (33.0-37.0); Mean Corpuscular Volume 90.6 fL (80.0-94.0); Platelet Count 182 10^3/uL (130-400); Red Cell Dist. Width 15.1 % (11.5-14.5)
[2025-07-14 05:23] LABS: ALT (SGPT) 240 U/L (0-50); AST (SGOT) 483 U/L (17-59); Albumin 3.0 g/dl (3.5-5.0); Alkaline Phosphatase 824 U/L (38-126); Blood Urea Nitrogen 53 mg/dl (9-20); Calcium 9.8 mg/dl (8.4-10.2); Carbon Dioxide 29 mmol/L (22-30); Chloride 95 mmol/L (98-107); Estimated Creatinine Clearance 65 ml/min; Glucose 97 mg/dl (70-99); Potassium 5.7 mmol/L (3.5-5.1); Sodium 128 mmol/L (135-145); Total Protein 6.2 g/dl (6.3-8.2); eGFR > 60.00
[2025-07-14] MEDS: DILAUDID 0.25 MG IV (06:48)
[2025-07-14] MEDS: MILK OF MAGNESIA 30 ML PO ×2 (08:03→22:00)
[2025-07-14] MEDS: MAXIPIME 2000 MG IV ×3 (08:04→23:19)
[2025-07-14] MEDS: WELLBUTRIN SR (12 hour sustained release) 200 MG PO ×2 (08:04→19:40)
[2025-07-14] MEDS: LUVOX 150 MG PO (08:04)
[2025-07-14] MEDS: PEPCID 20 MG IV (08:04)
[2025-07-14] MEDS: ELIQUIS 5 MG PO ×2 (08:04→19:40)
[2025-07-14] MEDS: ZITHROMAX 500 MG PO (08:04)
[2025-07-14] MEDS: NSS (PRESERVATIVE FREE) 8 ML IV (08:04)
[2025-07-14] MEDS: XANAX 1.5 MG PO ×2 (08:05→19:40)
[2025-07-14] MEDS: DILAUDID 0.5 MG IV ×4 (08:05→19:38)
--- NOTE | 2025-07-14 08:39 | W.PN.HOSP.TC ---
Today's Communication/Plan
-
IV Lasix
Continue IV abx
Hospice consult placed
Assessment / Plan
Assessment / Plan
HPI: 60-year-old with past medical history for metastatic neuroendocrine carcinoma mets to hepatic, right adrenal, thrombus in the IVC and right common iliac vein, sent in from [facility] for shortness of breath and elevated heart rate.
He also c/o mild cough and worsening BL LE and abdomen swelling.
He was diagnosed with metastatic neuroendocrine cancer in May and has been following with [facility]. He had his first chemo infusion the day [facility] and was scheduled for his next infusion on DOA.
Chest x-ray:
Increasing parenchymal airspace opacity within the right lower lung, highly suspicious for pneumonia. Small right pleural effusion, slightly increased since previous radiograph.
A/P:
# Sepsis POA secondary to right lower lobe pneumonia/CAP
# acute hypoxic respiratory failure secondary to pneumonia
# Immunocompromised state in setting of metastatic neuroendocrine cancer and on active chemotherapy
# Worsening chronic transaminitis may be due to sepsis versus effect of chemo versus underlying cancer
# Lactic acidosis POA due to sepsis vs active cancer vs chemo effect
s/p 500 cc in ED, cont gentle IVF 500 cc only (avoid excess IVF in setting of significant edema)
Follow blood cultures, MRSA screen, COVID/flu negative
Cont IV cefepime
continue O2 support at 4L NC, wean as tolerated, pt not on home O2
ID consult
Monitor LFT , lactate
# Acute on chronic hyponatremia, acute component ?related to pneumonia/SIADH vs dehydration
chronically this would be hypervolemic hyponatremia
urine sodium very low, low effective circulating volume
Received 1 L IV fluid, NA increased from 124-128. Stop further IV fluid
IV Lasix with salt tabs
Monitor SCr , Sodium level
# CKD stage III
creatinine 1.5 improved to 1.3
# Hyperkalemia
K level 5.8, improved to 5.6
EKG without peaked T wave
s/p Kayexalate x1
Monitor K level
# abdominal distention
# Worsening BL LE edema
Not enough abdominal fluid for paracentesis, hence abd distension likely due to cancer
# metastatic neuroendocrine cancer
# R renal cell carcinoma
# Right adrenal metastasis.
# Large retrocrural and mediastinal emily metastases.
# Hepatic metastatic disease
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
cont [facility] Eliquis
pain control with IV Dilaudid per pt request, cont bowel regimen while on opiate
Onc CS appreciated, patient is interested in hospice, hospice consult placed
# Anxiety d/o
cont [facility] Alprazolam, bupropion, fluvoxamine
DVT ppx Eliquis
full code
Anticipated Discharge: > 48 hours
Subjective/Interval History
-
Date of Service: July 14, 2025
Patient states that he had a rough night due to pain, aching in his abdomen, all over, constant, more severe yesterday than typical, relieved by increased dose of IV Dilaudid. Has not eaten today. [id number] at bedside.
Reviewed overnight events, fall, patient denies headache.
Objective Data
-
Labs:
Laboratory Results
07/14/25
04:47
WBC 14.2 H
Hgb 12.0 L
Hct 33.7 L
Plt Count 182
Sodium 128 L
Potassium 5.7 H
Chloride 95 L
Carbon Dioxide 29
BUN 53 H
Creatinine 1.3
Glucose 97
Calcium 9.8
Total Bilirubin 1.8 H
AST 483 H
ALT 240 H
Alkaline Phosphatase 824 H
Vital Signs:
Vital Signs
Temp Pulse Resp BP Pulse Ox
98.4 F 100 18 117/72 97
07/14/25 07:51 07/14/25 07:51 07/14/25 07:51 07/14/25 07:51 07/14/25 07:51
I&O
07/13/25 07/14/25 07/15/25
06:59 06:59 06:59
Intake Total 240 / 240 840 / 840
Output Total 500 / 500
Balance 240 / 240 340 / 340
Review of Systems
-
History Source: Patient
All other systems: Reviewed and negative
Physical Exam
-
General: No Apparent Distress
HEENT: Moist Mucous Membranes, Anicteric and PERRLA
Respiratory: Clear to Auscultation; Negative Wheezes, Rales or Rhonchi
Cardiac: Regular Rhythm and S1/S2; Negative Murmur, Rub or Gallop
GI: Nontender, Normal Bowel Sounds and Distended
Musculoskeletal: Edema, Right Lower Extrem and Edema, Left Lower Extrem
Skin: Warm and Dry; Negative Rash, Ulcers or Lesions
Neuro: Awake and AO x 3
Hematologic / Lymphatic: No Lymphadenopathy
Psych: Calm
Data Reviewed
-
Diagnostic Radiology: Report Reviewed by me
CT Scan: Report Reviewed by me
Ultrasound: Report Reviewed by me and Discussed with Patient
Labs: Labs Reviewed by me and Discussed with Patient
[2025-07-14] MEDS: COLACE PO (11:44)
[2025-07-14] MEDS: MILK OF MAGNESIA PO ×2 (11:44→17:12)
[2025-07-14] MEDS: COLACE 100 MG PO (12:36)
--- NOTE | 2025-07-14 13:08 | W.PN.ONC ---
Today's Communication / Plan
-
hospice consult
Impression
Impression
Metastatic Neuroendocrine Carcinoma- primary unknown
Respiratory distress secondary to abdominal distention and possible PNA
Generalized Weakness
Chronic Transaminitis
Lactic acidosis
Macrocytic Anemia
Hyperkalemia
Hypervolemic Hyponatremia likely secondary to liver pathology d/t metastasis
CKD Stage 3a
Plan
Plan
-Advanced high burden of metastatic neuroendocrine cancer with declining functional status
-discussed overall plan of care w/ patient in detail today - including potential supportive care options including palliative care and hospice
-patient expressed that he is interested in a transition to hospice care
-hospice consult will be placed
Subjective/Objective
Subjective/Objective
feels tired, full, lower back pain
Vital Signs:
Vital Signs
Temp Pulse Resp BP Pulse Ox
97.4 F 90 18 120/74 99
07/14/25 11:04 07/14/25 11:04 07/14/25 11:04 07/14/25 11:04 07/14/25 11:04
Lab Results:
Laboratory Data
WBC 14.2 10^3/uL (4.8-10.8) H 07/14/25 04:47
Hgb 12.0 g/dL (13.0-18.0) L 07/14/25 04:47
Plt Count 182 10^3/uL (130-400) 07/14/25 04:47
eGFR > 60.00 07/14/25 04:47
Exam: unchanged
--- NOTE | 2025-07-14 13:23 | CM ---
Addendum entered by Axel Light 07/14/25 16:16:
OOH DNR on chart to be signed by hospitalist
Addendum entered by Axel Light 07/14/25 16:09:
Follow up from Michaela: Patient will d/c to sister in law's home on hospice. Plan to d/c on Thursday.
Sister in law's address: [address] [place] [address], [place] [address]. 2 steps up from porch, 1 step into house.
Equipment delivery before Thursday, insurance verified
Ambulance transport forms on chart ----->REQUESTING BETWEEN 9-10 AM TRANSPORT ON THURSDAY
IMM verbally reviewed, copy provided, copy on chart
Plan: D/c to sister in law's home w/ hospice on Thursday. Ambulance transport
Original Note:
CM consulted for hospice by oncology. Advanced high burden of metastatic neuroendocrine cancer with declining functional status.
Patient interested in transition to hospice care. hospice referral completed. TT to special education paraprofessional hospice nurse, Michaela to review
CM will cont to follow for further d/c planning
Plan: hospice referral
[2025-07-14] MEDS: LASIX 40 MG IV (15:41)
--- NOTE | 2025-07-14 17:29 | HOSPNOTE ---
HOSPICE REFERRAL RECEIVED. SPOKE TO PATIENT AND [facility]. ALL ARE IN AGREEMENT WITH HOSPICE. EQUIPMENT WILL BE DELIVERED TOMORROW. ASKED CM TO ARRANGE TRANSPORT FOR 9-10 AM ON THURSDAY TO [facility]. HOSPICE WILL THEN ADMIT PATIENT
ONTO SERVICE ONCE HE IS HOME.
[2025-07-14] MEDS: SODIUM CHLORIDE 1 GRAM PO (19:40)
[2025-07-14] MEDS: LUVOX 100 MG PO (22:00)
[2025-07-14] MEDS: FLUSH (NSS) 1 FLUSH IV (23:21)
[2025-07-15] MEDS: DILAUDID 0.5 MG IV ×5 (02:05→23:40)
[2025-07-15 03:39] VITALS: BP 105/67
[2025-07-15 05:32] LABS: Hematocrit 35.5 % (39.0-52.0); Hemoglobin 11.8 g/dL (13.0-18.0); Mean Corp Hgb Conc. 33.2 g/dL (33.0-37.0); Mean Corpuscular Volume 94.4 fL (80.0-94.0); Platelet Count 166 10^3/uL (130-400); Red Cell Dist. Width 15.5 % (11.5-14.5)
[2025-07-15 05:55] LABS: ALT (SGPT) 209 U/L (0-50); AST (SGOT) 364 U/L (17-59); Albumin 2.9 g/dl (3.5-5.0); Alkaline Phosphatase 741 U/L (38-126); Blood Urea Nitrogen 52 mg/dl (9-20); Calcium 9.7 mg/dl (8.4-10.2); Carbon Dioxide 31 mmol/L (22-30); Chloride 94 mmol/L (98-107); Estimated Creatinine Clearance 65 ml/min; Glucose 97 mg/dl (70-99); Potassium 5.2 mmol/L (3.5-5.1); Sodium 126 mmol/L (135-145); Total Protein 6.4 g/dl (6.3-8.2); eGFR > 60.00
[2025-07-15 07:18] VITALS: BP 125/76
[2025-07-15] MEDS: LUVOX 150 MG PO (08:48)
[2025-07-15] MEDS: XANAX 1.5 MG PO ×2 (08:49→19:55)
[2025-07-15] MEDS: SODIUM CHLORIDE 1 GRAM PO ×2 (08:49→19:55)
[2025-07-15] MEDS: WELLBUTRIN SR (12 hour sustained release) 200 MG PO ×2 (08:52→19:55)
[2025-07-15] MEDS: ELIQUIS 5 MG PO ×2 (08:52→19:55)
[2025-07-15] MEDS: LASIX 40 MG IV ×2 (08:53→16:02)
[2025-07-15] MEDS: MAXIPIME 2000 MG IV ×3 (08:54→23:39)
[2025-07-15] MEDS: STERILE WATER FOR INJECTION 10 ML IV ×3 (08:55→23:39)
[2025-07-15] MEDS: PEPCID 20 MG IV (08:55)
[2025-07-15] MEDS: MILK OF MAGNESIA PO ×4 (08:56→21:23)
[2025-07-15] MEDS: NSS (PRESERVATIVE FREE) 8 ML IV (08:56)
--- NOTE | 2025-07-15 09:06 | PTCARENOTE ---
pt pleasant this am, see mar for med administration, pt on 02, pain med given for discomfort, am po meds given, does not want to eat breakfast at this time. pt resting, call hussein in reach
[2025-07-15 11:38] VITALS: BP 112/78
[2025-07-15] MEDS: COLACE PO (14:01)
[2025-07-15] MEDS: ZITHROMAX 500 MG PO (14:02)
--- NOTE | 2025-07-15 15:31 | W.PN.HOSP.TC ---
Today's Communication/Plan
-
Awaiting hospice consult
Assessment / Plan
Assessment / Plan
60-year-old with past medical history of
metastatic neuroendocrine carcinoma with mets to hepatic & right adrenal,
thrombus in the IVC and right common iliac vein,
sent in from [facility] for shortness of breath and elevated heart rate. He also c/o mild cough and worsening BL LE and abdomen swelling. He was diagnosed with metastatic neuroendocrine cancer in May and has been following with
[facility]. He had his first chemo infusion the day [facility] and was scheduled for his next infusion on DOA.
Chest x-ray:
Increasing parenchymal airspace opacity within the right lower lung, highly suspicious for pneumonia.
Small right pleural effusion, slightly increased since previous radiograph.
1. Sepsis POA secondary to right lower lobe pneumonia/CAP complicated by:
acute hypoxic respiratory failure secondary to pneumonia
Immunocompromised state in setting of metastatic neuroendocrine cancer and on active chemotherapy
Worsening chronic transaminitis may be due to sepsis versus effect of chemo versus underlying cancer
Lactic acidosis POA due to sepsis vs active cancer vs chemo effect
He is now being transitioned to hospice care. In the meantime:
s/p 500 cc in ED, cont gentle IVF 500 cc only (avoid excess IVF in setting of significant edema)
Follow blood cultures, MRSA screen, COVID/flu negative
Cont IV cefepime
O2 support at 4L NC, wean as tolerated, pt not on home O2
ID consult
Monitor LFT , lactate
2. Acute on chronic hyponatremia, acute component ?related to pneumonia/SIADH vs dehydration
chronically this would be hypervolemic hyponatremia
urine sodium very low, low effective circulating volume
Received 1 L IV fluid, NA increased from 124-128. Stop further IV fluid
IV Lasix with salt tabs
Monitor SCr , Sodium level
3. CKD stage III
creatinine 1.5 improved to 1.3
4. Hyperkalemia
K level 5.8, improved to 5.6
EKG without peaked T wave
s/p Kayexalate x1
Monitor K level
5. abdominal distention with Worsening BL LE edema
Not enough abdominal fluid for paracentesis, hence abd distension likely due to cancer
Focus on comfort as he is being transitioned to hospice
6. metastatic neuroendocrine cancer
R renal cell carcinoma
Right adrenal metastasis.
Large retrocrural and mediastinal emily metastases.
Hepatic metastatic disease
tumor thrombus in the IVC and right common iliac vein
cont [facility] Eliquis
pain control with IV Dilaudid per pt request, cont bowel regimen while on opiate
Onc CS appreciated, patient is interested in hospice, hospice consult placed
7. Anxiety d/o
cont [facility] Alprazolam, bupropion, fluvoxamine
DVT ppx Eliquis
full code - but will change with hospice
Anticipated Discharge: 24 - 48 hours
Subjective/Interval History
-
Date of Service: July 15, 2025
Comfortable
Objective Data
-
Labs:
Laboratory Results
07/15/25
05:19
WBC 12.6 H
Hgb 11.8 L
Hct 35.5 L
Plt Count 166
Sodium 126 L
Potassium 5.2 H
Chloride 94 L
Carbon Dioxide 31 H
BUN 52 H
Creatinine 1.3
Glucose 97
Calcium 9.7
Total Bilirubin 1.7 H
AST 364 H
ALT 209 H
Alkaline Phosphatase 741 H
Vital Signs:
Vital Signs
Temp Pulse Resp BP Pulse Ox
97.4 F 104 16 112/78 99
07/15/25 11:38 07/15/25 11:38 07/15/25 11:38 07/15/25 11:38 07/15/25 11:38
I&O
07/14/25 07/15/25 07/16/25
06:59 06:59 06:59
Intake Total 840 / 840 880 / 880
Output Total 500 / 500
Balance 340 / 340 880 / 880
Review of Systems
-
History Source: Patient
All other systems: Reviewed and negative
Physical Exam
-
General: Well Developed, Well Nourished, No Apparent Distress, Comfortable and Appears Chronically Ill
HEENT: Nose Appears Normal and Ears Appear Normal
Respiratory: Clear to Auscultation
Cardiac: Regular Rhythm
Skin: Warm and Dry
Psych: Calm
Data Reviewed
-
Labs: Labs Reviewed by me
[2025-07-15 16:02] VITALS: BP 119/76
--- NOTE | 2025-07-15 17:36 | PTCARENOTE ---
pt weak and sob when ambulating to br this afternoon. bsc encouraged and placed in room for use, pt resting
[2025-07-15 19:51] VITALS: BP 115/73
[2025-07-15] MEDS: LUVOX 100 MG PO (21:23)
[2025-07-15 23:55] VITALS: BP 114/71
[2025-07-16] MEDS: DILAUDID 0.5 MG IV ×2 (03:50→08:12)
--- NOTE | 2025-07-16 06:09 | W.DCSUMMARY ---
Discharge Summary
Discharge Data
Date of Admission: 07/12/25
Date of Discharge: 07/16/25
Total time spent discharging patient (in min): 51
-
Pending Results: No
Hospital Course
Discharge diagnosis:
Metastatic Neuroendocrine Carcinoma- primary unknown
Respiratory distress secondary to abdominal distention and possible PNA
Generalized Weakness
Chronic Transaminitis
Lactic acidosis
Macrocytic Anemia
Hyperkalemia
Hypervolemic Hyponatremia likely secondary to liver pathology d/t metastasis
CKD Stage 3a
Diagnosis present prior to admission:
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
Anxiety
Poorly differentiated neuroendocrine carcinoma dx'ed 05/2025 with extensive mets to R kidney, liver, retroperitoneal/mediastinal lymph nodes, right adrenal, chemo started 07/11/25
CKD3
Port placement 07/03/2025
Initial presentation and hospital course by problem:
60-year-old sent in from [facility] for shortness of breath and elevated heart rate. He also c/o mild cough and worsening BL LE and abdomen swelling. He was diagnosed with metastatic neuroendocrine cancer in May and has been
following with [facility]. He had his first chemo infusion the day TOOL CRIB LEAD and was scheduled for his next infusion on DOA.
Chest x-ray:
Increasing parenchymal airspace opacity within the right lower lung, highly suspicious for pneumonia.
Small right pleural effusion, slightly increased since previous radiograph.
1. Sepsis POA secondary to right lower lobe pneumonia/CAP complicated by:
acute hypoxic respiratory failure secondary to pneumonia
Immunocompromised state in setting of metastatic neuroendocrine cancer and on active chemotherapy
Worsening chronic transaminitis may be due to sepsis versus effect of chemo versus underlying cancer
Lactic acidosis POA due to sepsis vs active cancer vs chemo effect
Patient was seen by oncology. Oncology stated:
'-Advanced high burden of metastatic neuroendocrine cancer with declining functional status
-discussed overall plan of care w/ patient in detail today - including potential supportive care options including palliative care and hospice
-patient expressed that he is interested in a transition to hospice care
-hospice consult will be placed'
He is now being transitioned to hospice care at home.
In the hospital:
Fluids given
Blood cultures taken, MRSA screen (-), COVID/flu negative
O2 support at 4L NC provided, and he was weaned off
ID was consulted
2. Acute on chronic hyponatremia, acute component potentially related to pneumonia/SIADH vs dehydration
chronically this would be hypervolemic hyponatremia
urine sodium very low, low effective circulating volume
He Received 1 L IV fluid, NA increased from 124-128. We Stopped further IV fluid
IV Lasix given as well as salt tabs
3. CKD stage III
creatinine initially was 1.5 and improved to 1.3
4. Hyperkalemia
K level initially 5.8, improved to 5.6
EKG was without peaked T wave (s/p Kayexalate x1)
5. Abdominal distention with Worsening BL LE edema
There was Not enough abdominal fluid for paracentesis, and the abd distension is likely due to cancer
Focus on comfort as he is being transitioned to hospice
6. metastatic neuroendocrine cancer with:
R renal cell carcinoma
Right adrenal metastasis.
Large retrocrural and mediastinal emily metastases.
Hepatic metastatic disease
tumor thrombus in the IVC and right common iliac vein
Plan is to continue TOOL CRIB LEAD Eliquis
Continue pain control with opioids per pt request, cont bowel regimen while on opiate
7. Anxiety d/o - chronic
cont TOOL CRIB LEAD Alprazolam, bupropion, fluvoxamine
DVT while in the hospital was Eliquis
He was full code while in the hospitl, but it is recommended that this should be changed as he activates hospice
Exam on the day of discharge:
Constitutional: Acutely Ill
Head: bandage on head
Eyes: No Conjunctival Hemorrhage and Sclera Anicteric
Cardiovascular: Regular Rate and S1/S2
Pulmonary: Rales (Crackles right base)
Gastrointestinal: firm, Non Tender and Distended
Extremities: Edema (BLE)
Neurological: AO x 3
Lines: Port (RCW no erythema)
Psych: Calm
Discharge Plan
-
Patient Disposition: Home with Hospice
Discharge Diagnosis/Procedures: Metastatic cancer
Diet: No restrictions
Activity: No restrictions
Driving Restrictions: As prior to admission
Other Services: Hospice
Referrals:
KACI MEDINA DO [Family Provider, Family Practice]
Prescriptions:
New
azithromycin 250 mg tablet
250 mg PO DAILY 4 Days Qty: 4 0RF
cefdinir 300 mg capsule
300 mg PO Q12H Qty: 8 0RF
Continued
fluvoxamine 100 mg tablet
100 mg PO HS
fluvoxamine 100 mg tablet
150 mg PO DAILY
bupropion HCl 200 mg tablet sustained-release 12 hr
200 mg PO BID
alprazolam 3 mg tablet extended release 24 hr
3 mg PO HS
Eliquis 5 mg Tablet
5 mg PO BID
hydromorphone [Dilaudid] 4 mg tablet
2 mg PO Q4H
ondansetron 4 mg tablet,disintegrating
4 mg PO Q8HPRN PRN (Reason: nausea and vomiting)
polyethylene glycol 3350 [Miralax] 17 gram Powder In Packet
17 g PO DAILYPRN PRN (Reason: constipation)
docusate sodium [Colace] 100 mg Capsule
100 mg PO DAILY@1300
Discharge Orders:
Discharge Patient (As Directed); Ordered 07/16/25
Ordered By: Brennon Raines
Discharge Date and Time
Print Language: MOLDOVAN
--- NOTE | 2025-07-16 06:43 | VATNOTE ---
CONSULTED WITH PCN. WILL DEFER DRAWING AM LABS PT SCHEDULED TO BE D/C'D ON HOSPICE THIS AM. PCN TO CONTACT [facility] IF LABS NEED TO BE DRAWN.
[2025-07-16 07:00] VITALS: BP 125/75
[2025-07-16] MEDS: ELIQUIS 5 MG PO (07:56)
[2025-07-16] MEDS: XANAX 1.5 MG PO (07:56)
[2025-07-16] MEDS: SODIUM CHLORIDE 1 GRAM PO (07:56)
[2025-07-16] MEDS: WELLBUTRIN SR (12 hour sustained release) 200 MG PO (07:56)
[2025-07-16] MEDS: MAXIPIME 2000 MG IV (07:57)
[2025-07-16] MEDS: STERILE WATER FOR INJECTION 10 ML IV (07:57)
[2025-07-16] MEDS: LUVOX 150 MG PO (07:57)
[2025-07-16] MEDS: ZITHROMAX 500 MG PO (07:57)
[2025-07-16] MEDS: NSS (PRESERVATIVE FREE) 8 ML IV (07:58)
[2025-07-16] MEDS: LASIX 40 MG IV (07:58)
[2025-07-16] MEDS: PEPCID 20 MG IV (07:58)
[2025-07-16] MEDS: MILK OF MAGNESIA PO (09:01)
--- NOTE | 2025-07-16 09:04 | CM ---
CM reviewed chart, patient for d/c to [facility] today with [facility]osp[facility].
Patient scheduled for 11:00 a.m. ambulance transport.
Update to patients sisterBeti, update to Hospice, Michaela.
OOD DNR form on chart
CM will continue to follow.
Plan; discharge to [facility] home with Hospice, 11:00 a.m. ambulance transport.
[facility]
[2025-07-16 11:02] VITALS: BP 94/59
== END 2025-07-16 11:22 | disposition hospice, home (50) | DRG 871 ==
LOC: 4 WEST ACU 18:25
PROVIDERS: Nurse Practitioner; Nurse Practitioner Family; Registered Nurse; ADMITTING PHYSICIAN Internal Medicine; ATTENDING PHYSICIAN Internal Medicine; CONSULT PHYSICIAN Internal Medicine Hematology & Oncology; EMERGENCY PHYSICIAN Emergency Medicine; FAMILY PHYSICIAN Student in an Organized Health Care Education/Training Program; OTHER PHYSICIAN Internal Medicine Infectious Disease
DX: A41.9 Sepsis, unspecified organism (principal); I82.220 Acute embolism and thrombosis of inferior vena cava; J18.9 Pneumonia, unspecified organism; J96.01 Acute respiratory failure with hypoxia; C7A.8 Other malignant neuroendocrine tumors; E87.20 Acidosis, unspecified; E22.2 Syndrome of inappropriate secretion of antidiuretic hormone; D84.821 Immunodeficiency due to drugs; R64 Cachexia; D53.9 Nutritional anemia, unspecified; E87.5 Hyperkalemia; N18.31 Chronic kidney disease, stage 3a; F41.9 Anxiety disorder, unspecified; E86.0 Dehydration; T45.1X5A Adverse effect of antineoplastic and immunosuppressive drugs, initial encounter; E83.52 Hypercalcemia; E87.70 Fluid overload, unspecified; Z79.01 Long term (current) use of anticoagulants; Z85.118 Personal history of other malignant neoplasm of bronchus and lung; Z79.899 Other long term (current) drug therapy; Z11.52 Encounter for screening for COVID-19; R65.20 Severe sepsis without septic shock
CPT/HCPCS: 70450; 71046; 76705; 80053; 82962; 83605; 83615; 83935; 84300; 84550; 85025; 85027; 87040; 87070; 87449; 87502; 87811; 87899; 92610; 93005; 96361; 96374; 97163; 97530; 99285